=== PATIENT | male | born 1960 | race Caucasian/White ===

== ENCOUNTER → 2017-05-20 10:47 | Outpatient (CLI) | payer MEDICARE, SELFPAY ==
[2017-05-20 13:06] LABS: BNP,B-Type NATRIURETIC PEPTIDE 12.5 pg/mL (0-100)
== END ==
PROVIDERS: Family Provider Internal Medicine; PCP Internal Medicine; Visit Provider Physician Assistant Medical
DX: R06.09 Other forms of dyspnea (principal)
CPT/HCPCS: 36415; 83880

== ENCOUNTER → 2017-06-01 15:08 | Outpatient (CLI) | payer MEDICARE, SELFPAY ==
[2017-06-01 15:57] LABS: Anion Gap 9 (5-15); BUN 18 mg/dL (7-18); BUN/Creat Ratio 15.8 RATIO (10-20); Calcium,Total 9.3 mg/dL (8.5-10.1); Chloride 105 mmol/L (98-107); Creatinine, Serum 1.14 mg/dL (0.70-1.30); EST Glomerular Filtration Rate 70 mL/min (>60); Est Glom Filt Rate - Afr Amer 85 mL/min (>60); Glucose 78 mg/dL (74-106); Sodium Level 142 mmol/L (136-145)
== END ==
PROVIDERS: Family Provider Internal Medicine; PCP Internal Medicine; Visit Provider Physician Assistant Medical
DX: I10 Essential (primary) hypertension (principal)
CPT/HCPCS: 36415; 80048

== ENCOUNTER → 2017-06-15 15:11 | Outpatient (CLI) | payer MEDICARE, SELFPAY ==
--- NOTE | 2017-06-15 15:14 | VDLE_ITS ---
Reason For Study: swelling RIGHT LEFT GSV is normal. GSV is normal. CFV is compressible, spontaneous, phasic, CFV is compressible, spontaneous, phasic, competent and demonstrates normal competent, and demonstrates normal augmentation. augmentation. FV is compressible, spontaneous, phasic, FV is compressible, spontaneous, phasic, competent and demonstrates normal competent and demonstrates normal augmentation. augmentation. POP V is compressible, spontaneous, phasic, POP V is compressible, spontaneous, phasic, competent and demonstrates normal competent and demonstrates normal augmentation. augmentation. T/P Trunk is compressible. T/P Trunk is compressible. PTV is compressible. PTV is compressible. RT PerV is compressible. LT PerV is compressible. Procedure Exam performed in department. The exam was of fair technical quality due to pt body habitus. A preliminary report was called and/or faxed to Dr. Pinto. Interpretation Summary Deep veins of the lower extremities are bilaterally patent and compressible segmentally. There is no evidence of deep vein thrombosis on either side. Valvular competence appears intact within the proximal deep venous systems bilaterally. The greater saphenous veins appear bilaterally patent and compressible segmentally. Ordering Physician: Melissa Pinto Performed By: Juan Manuel Pal RVT
--- NOTE | 2017-06-15 15:15 | EKG12_ITS ---
Test Reason : PRE OP Blood Pressure : / mmHG Vent. Rate : 087 BPM Atrial Rate : 087 BPM P-R Int : 158 ms QRS Dur : 092 ms QT Int : 378 ms P-R-T Axes : 061 039 061 degrees QTc Int : 454 ms Normal sinus rhythm Nonspecific ST abnormality Abnormal ECG Confirmed by SANTIAGO BERTRAND, TABITHA ([id number]), society editor WILMA ENGEL ([id number] on 06/16/2017 1:12:29 PM Referred By: Melissa Pinto Confirmed By:TABITHA HENDERSON MD
== END ==
PROVIDERS: Family Provider Internal Medicine; PCP Internal Medicine; Visit Provider Anesthesiology Pain Medicine
DX: M79.89 Other specified soft tissue disorders (principal); R52 Pain, unspecified
CPT/HCPCS: 93005; 93970

== ENCOUNTER → 2017-07-08 09:47 | Outpatient (CLI) | payer MEDICARE, SELFPAY ==
--- NOTE | 2017-07-08 09:49 | RAD_ITS ---
STUDY: X-RAY - PELVIS AND BILATERAL HIPS REASON FOR EXAM: Male, 56 years old. Bilateral hip pain. TECHNIQUE: Radiological exam, hip, bilateral, with pelvis when performed; minimum of 5 views COMPARISON: None. FINDINGS: There is a non-specific bowel gas pattern. Normal visualized soft tissue structures. Normal bilateral iliac wings, sacroiliac joints and visualized sacrum. Normal bilateral superior and inferior pubic rami. Normal pubic symphysis. Normal bilateral ischial tuberosities. There is mild arthrosis of both hips. RAD/Hips B/L min 2 views w/ Pelvis IMPRESSION: Mild arthrosis of both hips. No other abnormality identified. Electronically Signed: Pavel Hart MD at 10:36 EDT , Service support ,
== END ==
PROVIDERS: Family Provider Internal Medicine; PCP Internal Medicine; Visit Provider Orthopaedic Surgery
DX: M25.551 Pain in right hip (principal); M25.552 Pain in left hip
CPT/HCPCS: 73521

== ENCOUNTER → 2017-10-26 07:55 | Outpatient (CLI) | payer MEDICARE, SELFPAY | PROVIDERS: Family Provider Internal Medicine; PCP Internal Medicine; Visit Provider Internal Medicine Pulmonary Disease | DX: R05 Cough (principal) | CPT/HCPCS: 87070; 87205 ==

== ENCOUNTER → 2018-03-09 09:54 | Outpatient (CLI) | payer MEDICARE, SELFPAY ==
[2017-08-26 09:47] VITALS: BMI 51.3
[2018-03-09 10:56] LABS: Amphetamine Urine VISTA NEGATIVE (<1000 ng/mL); Barbiturate Urine VISTA NEGATIVE (< 200 ng/mL); Benzodiazepine Urine VISTA NEGATIVE (< 200 ng/mL); Cocaine Urine VISTA NEGATIVE (< 300 ng/mL); Ecstacy Urine VISTA POSITIVE (< 500 ng/mL); Methadone Urine VISTA NEGATIVE (< 300 ng/mL); PCP Urine VISTA NEGATIVE (< 25 ng/mL); THC Urine VISTA NEGATIVE (< 50 ng/mL); Vista UDS pH Range 5
== END ==
PROVIDERS: Family Provider Internal Medicine; PCP Internal Medicine; Referring Provider Anesthesiology Pain Medicine; Visit Provider Anesthesiology Pain Medicine
DX: F11.20 Opioid dependence, uncomplicated (principal)
CPT/HCPCS: 80307

== ENCOUNTER → 2018-07-08 | Outpatient (CLI) | payer MEDICARE, SELFPAY ==
[2018-07-08 10:25] VITALS: BMI 49.0
[2018-07-08 13:45] LABS: AST(SGOT) 20 U/L (15-37); Alanine Aminotransfer ALT/SGPT 39 U/L (16-61); Albumin, Serum 3.7 g/dL (3.2-5.0); Alkaline Phosphatase 83 U/L (45-117); Anion Gap 7 (5-15); BUN 18 mg/dL (7-18); BUN/Creat Ratio 13.6 RATIO (10-20); Calcium,Total 8.8 mg/dL (8.5-10.1); Chloride 97 mmol/L (98-107); Creatinine, Serum 1.32 mg/dL (0.70-1.30); EST Glomerular Filtration Rate 59 mL/min (>60); Est Glom Filt Rate - Afr Amer 72 mL/min (>60); Globulin 3.8 g/dL (2.2-4.2); Glucose 99 mg/dL (74-106); Potassium 3.1 mmol/L (3.5-5.1); Protein, Total 7.5 g/dL (6.4-8.2); Sodium Level 141 mmol/L (136-145)
== END | disposition home or self-care (01) ==
PROVIDERS: Family Provider Internal Medicine; PCP Internal Medicine
DX: K52.9 Noninfective gastroenteritis and colitis, unspecified (principal)
CPT/HCPCS: 36415; 80053

== ENCOUNTER 2018-10-21 12:04 | Emergency (ER) | payer MEDICARE, SELFPAY ==
[2018-09-01 08:42] VITALS: BMI 48.6
[2018-10-21 12:05] VITALS: BP 164/74; PULSE 94; RESP 16; TEMP 36.2; O2SAT 95; BMI 46.6
--- NOTE | 2018-10-21 12:25 | ED.DCSUM_ITS ---
- ER Visit Summary Date of Service: 10/21/18 Chief Complaint: Hypokalemia History of Present Illness: The patient is a 57 M sent by his primary doctor for hypokalemia. Physical Examination: Afebrile and vital signs unremarkable. Patient is alert. Sitting comfortably, moving comfortably. Normal speech. Test Results: None performed Emergency Department Course and Treatment: I saw the patient less than 20 minutes after he was triaged. I walked in the room and he was wearing headphones. He took them off and I said I was Dr. Camara. Before I could finish introducing myself, he said you have an order from Dr. Galeana. I said no but I am here to help and will figure it out. He said well I am just leaving then. I told him that I could find out what he needs and then I would be happy to give her a call. He said he is tired of dealing with this system. He is dealt with doctors for years and that one hand does not know what the other hand is doing. I asked him to please stop yelling at me, and he was yelling even more. He said he was going to leave, and he eloped. Treatment Plan: As above Disposition: Elopement Impression: 1. Hypokalemia This note was generated with [employer] dictation software. It may contain incorrect words, spelling, and punctuation that were not noted in review of the chart prior to signing ED Disposition - Plan for ED Patient: Referrals: Gabrielle Galeana, [Primary Care Provider] -
--- NOTE | 2018-10-21 12:30 | ED.RN ---
PT WAS VERY AGGITATED ABOUT BEING SENT TO ER AND WAS NOT UNDERSTANDING THAT A POTASSIUM DRIP WOULD NOT BE IMMEDIATELY INFISED SO HE COULD LEAVE. PT WAS COMPLAINING ABOUT EVERYTHING FROM THE PARKING LOT TO ALL THE QUESTIONS BEING ASKED. HE WAS MAD THAT HE NEEDED TO PUT A GOWN ON. PT BECAME VERY ANGRY AT DR MCNEAL BECAUSE HE DID NOT HAVE A ORDER FROM DR RUIZ FOR THE POTASSIUM DRIP. HE WAS NOT COOPERATIVE AND STATED HE WAS LEAVING. PT GOT DRESSED AND THEN AMBULATED FROM ED.
== END 2018-10-21 12:37 | disposition left against medical advice (07) ==
LOC: ED 12:26
PROVIDERS: Emergency Provider Emergency Medicine; Family Provider Internal Medicine; PCP Internal Medicine
DX: E87.6 Hypokalemia (principal)
CPT/HCPCS: 99281

== ENCOUNTER 2018-10-21 17:59 | Emergency (ER) | payer MEDICARE, SELFPAY ==
[2018-10-21 12:05] VITALS: BMI 46.6
[2018-10-21 18:00] VITALS: BP 126/89; PULSE 99; RESP 17; TEMP 37.2; O2SAT 95; BMI 46.6
--- NOTE | 2018-10-21 18:19 | ED.DCSUM_ITS ---
History of Present Illness Chief Complaint: Abn Labs Informant: Patient Narrative: Patient was seen earlier today however he eloped. He presents again he has a potassium of 2.4 in the outpatient environment. He is on diuretics and he has been taking laxatives for constipation. He denies any fever chills cough or congestion he does admit to diffuse weakness. He denies any palpitations. He is sent here by his PCP. Past Medical History - Allergies and Home Meds Allergies/Adverse Reactions: Allergies No Known Allergies Allergy (Verified 10/21/18 18:00) Primary Care Physician: Gabrielle Galeana DO [Primary Care Provider] - Past Medical History: - - Reviewed and [facility] Surgical History: noncontributory, - - BL knee arthoscopic surgery, back surgery, ankle surgery. Smoking Status: Former smoker - Family History Maternal Family History: Family History (Last Reviewed 09/01/18 @ 09:35 by Chun Gurrola MD) Father CAD (coronary artery disease) CVA (cerebral vascular accident) Hypercholesterolemia Mother Arthritis Breast cancer Osteoporosis Heart disease Sister CAD (coronary artery disease) Family History: Reports: No pertinent history, - - No sarcoidosis Paternal Family History: Family History (Last Reviewed 09/01/18 @ 09:35 by Chun Gurrola MD) Father CAD (coronary artery disease) CVA (cerebral vascular accident) Hypercholesterolemia Mother Arthritis Breast cancer Osteoporosis Heart disease Sister CAD (coronary artery disease) Family History: Reports: No pertinent history, - - No sarcoidosis Review of Systems All systems negative except as indicated General: Reports: - - Generalized weakness. Denies: Fever Eyes: Denies: Visual changes - left Cardiovascular: Denies: Chest pain, Palpitations Respiratory: Denies: Cough Musculoskeletal: Denies: Neck pain Neurological: Denies: Headache Psych: Reports: Anxiety Physical Exam Vital Signs/Narrative: Vital Signs Temp Pulse Resp BP Pulse Ox 10/21/18 18:00 99.0 F 99 17 126/89 H 95 General: Well nourished, Obese Head: Normocephalic Eyes: Perrl ENT: Moist mucous membranes Cardiovascular: Regular rate, Regular rhythm Respiratory: No distress, CTA bilaterally Abdomen: Soft, Nontender Back: Nontender, Normal Inspection Extremities: Nontender, No edema Skin: Normal color Neurological: Alert, Normal Strength, Normal Sensation Psychological: Normal affect Diagnostic/Tx/Re-eval - Medical Decision Making Patient will receive IV potassium, afterwards he will receive a prescription for p.o. potassium. He is encouraged to stop laxatives. He is to talk to his PCP about his diuretics. Disposition discharge stable condition ED Disposition - Plan for ED Patient: Disposition: Psychiatric Hospital or Unit Diagnosis: Hypokalemia Instructions: Hypokalemia Referrals: Gabrielle Galeana DO [Primary Care Provider] - 3-5 Days
[2018-10-21] MEDS: Potassium Chloride 10mEq/100mL 10 MEQ/100 ML IV.SOLN. 100 MEQ IV BOLUS ×3 (18:44→20:56)
[2018-10-21 18:52] VITALS: TEMP 37.2
[2018-10-21 19:51] VITALS: BP 87/64; PULSE 94; RESP 19; O2SAT 96
[2018-10-21 20:03] VITALS: BP 138/80; PULSE 92; RESP 16; O2SAT 97
--- NOTE | 2018-10-21 21:23 | ED.DEP ---
ED Disposition - Plan for ED Patient: Disposition: Psychiatric Hospital or Unit Diagnosis: Hypokalemia Instructions: Hypokalemia Prescriptions: Potassium Chloride 40 meq PO DAILY #8 [email or web address].prt Prescription Printed Referrals: Gabrielle Galeana DO [Primary Care Provider] - 3-5 Days
[2018-10-21 22:03] VITALS: BP 141/81; PULSE 82; RESP 20; O2SAT 96
== END 2018-10-21 22:04 | disposition home or self-care (01) ==
PROVIDERS: Emergency Provider Emergency Medicine; Family Provider Internal Medicine; PCP Internal Medicine
DX: E87.6 Hypokalemia (principal); Z87.891 Personal history of nicotine dependence; E66.9 Obesity, unspecified
CPT/HCPCS: 96365; 96366; 99281; 99285; J7030; A4216

== ENCOUNTER → 2018-10-25 | Outpatient (CLI) | payer MEDICARE, SELFPAY ==
[2018-09-01 08:42] VITALS: BMI 48.6
[2018-10-21 18:00] VITALS: BMI 46.6
--- NOTE | 2018-10-25 18:45 | CT_ITS ---
STUDY: LOW DOSE CT LUNG CANCER SCREENING REASON FOR EXAM: Male, 57 years old. Tobacco abuse RADIATION DOSAGE (If Supplied By Facility): CTDIvol = ( 4.02 ) mGy, DLP = ( 145.97 ) mGycm TECHNIQUE: No contrast was administered. Low dose technique was utilized (average mAS-38 and kVp 120). 1.25 mm axial source images with a slice interval of 1.25-mm were reconstructed in lung windows. 2.5 mm axial source images with a slice interval of 2.5-mm were reconstructed in lung windows. 5.0 mm axial source images with a slice interval of 5.0-mm were reconstructed in soft tissue windows. Nodule measured using lung windows on PACS and/or independent workstation with automated measurement of minimum and maximum diameter. Nodule measurement reported as average diameter rounded to the nearest whole number. Growth is defined as an increase ins size of greater than 1.5 mm. COMPARISON: CT chest May 29, 2015 NODULES: Total lung nodules (excluding granulomas): 0 Emphysema: Mild to moderate. Areas of scarring presentw. Endobronchial lesion: None Aorta: Normal Coronary arteries: Normal Heart: Normal Pulmonary artery: Normal Mediastinal nodes: Normal Other chest and abdominal findings: None significant CT/Low Dose CT Lung Screening IMPRESSION: No significant pulmonary nodules or masses. LRADS 1 Mild to moderate emphysema. IMPORTANT NOTES FOR USE: ACR Lung-RADS Version 1.0 Assessment Categories Release Date: June 05, 2013 Category: Coded 0-4 bases on nodule(s) with highest degree of suspicion. Negative screen is defined as categories 1 and 2; a positive screen is defined as categories 3 and 4. Category 3 and 4A nodules that are unchanged on interval CT should be coded as category 2, and individuals returned to screening in 12 months. Category 4X: Category 3 or 4 nodules with additional imaging findings that increase the suspicion of lung cancer, such as spiculation, GGN that doubles in size in 1 year, enlarged lymph notes, etc. Category Modifiers: S (significant finding unrelated to lung cancer) and C (prior history of treated lung cancer) may be added to the 0-4 Lung-RADS Electronically Signed: Tha Narvaez, at 21:36 EDT Tel , Service support ,
== END | disposition home or self-care (01) ==
LOC: CT 18:46
PROVIDERS: Family Provider Internal Medicine; PCP Internal Medicine; Referring Provider Internal Medicine; Visit Provider Internal Medicine
DX: Z87.891 Personal history of nicotine dependence (principal); Z72.0 Tobacco use; Z12.2 Encounter for screening for malignant neoplasm of respiratory organs
CPT/HCPCS: G0297

== ENCOUNTER 2018-10-26 18:12 | Emergency (ER) | payer MEDICARE, SELFPAY ==
[2018-10-26] VITALS (7 sets, daily range): BP systolic 114–142; BP diastolic 73–100; PULSE 78–111; RESP 15–18; TEMP 36.6; O2SAT 94–97; BMI 46.6
--- NOTE | 2018-10-26 18:21 | EKG12_ITS ---
Test Reason : LOW POTASSIUM Blood Pressure : / mmHG Vent. Rate : 104 BPM Atrial Rate : 104 BPM P-R Int : 160 ms QRS Dur : 100 ms QT Int : 376 ms P-R-T Axes : 044 055 031 degrees QTc Int : [address] & T wave abnormality, consider inferior ischemia Abnormal ECG Confirmed by NEERAJ BERTRAND, ROSE ([id number]), food editor AMMY BRIGHT ([id number]) on 10/28/2018 1:30:56 PM Referred By: Gabrielle Galeana Confirmed By:JALEN PICKARD MD
--- NOTE | 2018-10-26 18:37 | ED.DCSUM_ITS ---
- ER Visit Summary Date of Service: 10/26/18 Chief Complaint: Low potassium History of Present Illness: The patient is a [address] Galeana. He reports that he has had problems with hypokalemia all my life. States that this episode began again approximately 1 week ago. States that he was here 5 d ays ago and got 3 bags of potassium and 10 pills. However, he reports the pills and never worked in the past. Review of systems: General: No fever, chills, cold sweats. Cardiovascular: No chest pain, palpitations. Respiratory: No cough, shortness of breath, dyspnea on exertion. Gastrointestinal: No abdominal pain, nausea, vomiting, diarrhea, melena, or hematochezia. Genitourinary: No dysuria, frequency, hematuria. Skin: No rash. Neuro: No headache, numbness, weakness. Physical Examination: Vitals: Stable. Afebrile. General: Well-nourished and well-developed. Head: Normocephalic atraumatic. Neck: Supple, no lymphadenopathy. No JVD. Nontender. Cardiovascular: Regular rate and rhythm. No murmurs. Respiratory: No respiratory distress. Clear to auscultation bilaterally. Abdominal: Soft, nontender, nondistended, normal bowel sounds. No guarding, rebound, or peritoneal signs. Back: Nontender. Extremities: Nontender, no edema. Skin: Normal color, no rash. Neurologic: Alert and oriented ?3. Cranial nerves II through XII are intact. Normal strength and sensation. Psych: Normal affect. Test Results: EKG is sinus tach at [address] changes. He does have inferolateral ST depression. This is a change from June 15, 2017. CBC shows an H&H 12.6 and 37.0. Chem-7 shows a potassium of 2.1, chloride 96, CO2 36, glucose 138, creatinine 1.56. Creatinine has ranged from 1.32-1.56 and 2019. Magnesium was 1.1. Emergency Department Course and Treatment: Patient reports that IV potassium is the only thing that works for him. He was given 120 mEq of potassium over the course of 12 hours. I discussed in the fact that his magnesium was low. He was given 800 mg of magnesium oxide p.o. He does report that he takes magnesium at home. He is unsure of the dose of this. Treatment Plan: Patient is refusing to be admitted to the hospital. 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 He will be discharged potassium and magnesium. Instructed him Dr. Galeana in 1 to 2 days for another exam. Return to the emergency department for any worsening symptoms. Disposition: To home in improved and stable condition. Impression: 1. Severe hypokalemia. This note was generated with [employer] dictation software. It may contain incorrect words, spelling, and punctuation that were not noted in review of the chart prior to signing ED Disposition - Plan for ED Patient: Instructions: Hypokalemia Prescriptions: Magnesium Oxide 800 mg PO BID #10 tablet Potassium Chl Soln 20 meq PO BID #10 dose Referrals: Gabrielle Galeana, [Primary Care Provider] - 1-2 Days if not improving
[2018-10-26] MEDS: Potassium Chloride 10mEq/100mL 10 MEQ/100 ML IV.SOLN. 100 MEQ IV BOLUS ×5 (18:55→23:05)
[2018-10-26 19:32] LABS: Absolute Lymphocyte Count 1.43 X10^3/uL (0.83-4.51); Absolute Neutrophil Count 4.4 X10^3/uL (2.0-7.7); Basophil# 0.02 X10^3/uL; Basophil% 0.3 % (0-1); Eosinophil# 0.09 X10^3/uL; Eosinophils% 1.4 % (0-5); Hemoglobin 12.6 g/dL (13.0-16.5); Lymphocyte # 1.43 X10^3/ul (4.0); Lymphocyte % 21.9 % (19-41); Mean Corp Hgb Conc 34.1 g/dL (32-36); Mean Corpuscular Hgb 29.7 pg (27.0-32.0); Mean Corpuscular Volume 87.3 fL (80-94); Mean Platelet Vol. 11.4 fl (6.2-12.0); Monocyte# 0.58 X10^3/uL; Monocyte% 8.9 % (0-10); NRBC Flagged by Analyzer 0 % (0-5); Neutrophil # 4.41 X10^3/uL (2.7-7.7); Neutrophil % 67.3 % (47-70); Platelet Count 185 K/mm3 (150-450); RBC Distribution Width CV 13.7 % (11.6-14.6); RBC Distribution Width SD 42.7 fl (35.1-43.9); Red Blood Count 4.24 M/mm3 (4.6-6.2); White Blood Count 6.5 K/mm3 (4.4-11.0)
--- NOTE | 2018-10-26 19:45 | ED.RN ---
took critical potassium value of 2.1. and rn aware.
[2018-10-26 19:47] LABS: Anion Gap 5 (5-15); BUN 14 mg/dL (7-18); Calcium,Total 8.5 mg/dL (8.5-10.1); Chloride 96 mmol/L (98-107); Creatinine, Serum 1.56 mg/dL (0.70-1.30); EST Glomerular Filtration Rate 49 mL/min (>60); Est Glom Filt Rate - Afr Amer 59 mL/min (>60); Estimated Creatinine Clearance 53.29 ml/min; Glucose 138 mg/dL (74-106); Magnesium 1.1 mg/dL (1.6-2.6); Potassium 2.1 mmol/L (3.5-5.1); Sodium Level 137 mmol/L (136-145)
[2018-10-26] MEDS: Magnesium Oxide 400 MG Tablet 800 MG PO (20:35)
--- NOTE | 2018-10-26 20:47 | NURSING ---
na in pharmacy said ok to run 40 meq kcl in 1000cc bag in 1 hr
[2018-10-26] MEDS: Potassium Chloride 40 MEQ in 0.9% Normal Saline 1,000 ML 1000 MEQ IV (22:02)
[2018-10-27] MEDS: Potassium Chloride 10mEq/100mL 10 MEQ/100 ML IV.SOLN. 100 MEQ IV BOLUS ×3 (00:12→02:31)
[2018-10-27 01:05] VITALS: BP 163/91; RESP 21; TEMP 36.9; O2SAT 97
[2018-10-27 03:03] VITALS: BP 135/62; PULSE 94; RESP 20; O2SAT 94
[2018-10-27 03:38] VITALS: BP 135/62; PULSE 93; RESP 17; O2SAT 95
== END 2018-10-27 03:44 | disposition home or self-care (01) ==
PROVIDERS: Emergency Provider Emergency Medicine; Family Provider Internal Medicine; PCP Internal Medicine
DX: E87.6 Hypokalemia (principal); J44.9 Chronic obstructive pulmonary disease, unspecified; I10 Essential (primary) hypertension; Z79.51 Long term (current) use of inhaled steroids; Z79.899 Other long term (current) drug therapy
CPT/HCPCS: 80048; 83735; 85025; 93005; 96365; 96366; 99284; J7030; J7050; A4216

== ENCOUNTER 2018-10-28 18:36 | Observation (INO) | payer MEDICARE, SELFPAY ==
[2018-10-26 18:13] VITALS: BMI 46.6
[2018-10-28 18:37] VITALS: BP 132/74; PULSE 88; RESP 16; TEMP 36.7; O2SAT 95; BMI 49.3
[2018-10-28 19:00] LABS: Absolute Lymphocyte Count 1.59 X10^3/uL (0.83-4.51); Absolute Neutrophil Count 2.7 X10^3/uL (2.0-7.7); Basophil# 0.01 X10^3/uL; Basophil% 0.2 % (0-1); Eosinophil# 0.15 X10^3/uL; Eosinophils% 3.1 % (0-5); Hemoglobin 12.6 g/dL (13.0-16.5); Lymphocyte # 1.59 X10^3/ul (4.0); Lymphocyte % 32.6 % (19-41); Mean Corp Hgb Conc 34.1 g/dL (32-36); Mean Corpuscular Hgb 30.1 pg (27.0-32.0); Mean Corpuscular Volume 88.5 fL (80-94); Mean Platelet Vol. 10.5 fl (6.2-12.0); Monocyte# 0.42 X10^3/uL; Monocyte% 8.6 % (0-10); NRBC Flagged by Analyzer 0 % (0-5); Neutrophil # 2.68 X10^3/uL (2.7-7.7); Neutrophil % 55.1 % (47-70); Platelet Count 169 K/mm3 (150-450); RBC Distribution Width CV 13.4 % (11.6-14.6); RBC Distribution Width SD 43.3 fl (35.1-43.9); Red Blood Count 4.18 M/mm3 (4.6-6.2); White Blood Count 4.9 K/mm3 (4.4-11.0)
[2018-10-28] MEDS: Potassium Chloride 10mEq/100mL 10 MEQ/100 ML IV.SOLN. 100 MEQ IV BOLUS ×4 (19:18→22:45)
[2018-10-28 20:05] LABS: Anion Gap 5 (5-15); BUN 11 mg/dL (7-18); BUN/Creat Ratio 10.3 RATIO (10-20); Calcium,Total 8.3 mg/dL (8.5-10.1); Chloride 98 mmol/L (98-107); Creatinine, Serum 1.07 mg/dL (0.70-1.30); EST Glomerular Filtration Rate 75 mL/min (>60); Est Glom Filt Rate - Afr Amer 91 mL/min (>60); Glucose 112 mg/dL (74-106); Potassium 2.6 mmol/L (3.5-5.1); Sodium Level 140 mmol/L (136-145)
--- NOTE | 2018-10-28 20:08 | HP.PCM_ITS ---
Problem List (1) Hypokalemia Status: Acute History of Present Illness Date of Admission: 10/28/18 Chief Complaint: hypokalemia on outpatient lab The patient is a 57 year old M with with a significant history of COPD; hypertension; fibromyalgia; morbid obesity; partial sleep apnea who presented to emergency department because of hypokalemia of 2.6 on outpatient labs. This is patient's third visit to the ED because of hypokalemia. Patient complains of muscle cramps At the emergency department patient received p.o. and IV potassium supplementation. EKG is showed sinus rhythm with QTC of 474 Past Medical History Past Medical History (Chronic Problems): Chronic Problems (Last Reviewed 10/28/18 @ 21:45 by Tani Giordano MD) Dizziness (Chronic) Secondary pulmonary arterial hypertension (Chronic) Essential (primary) hypertension (Chronic) Palpitations (Chronic) Hyperlipidemia (Chronic) Medical History: Medical History (Last Reviewed 10/28/18 @ 22:49 by Tani Giordano MD) Secondary pulmonary arterial hypertension (Chronic) I27.21 Essential (primary) hypertension (Chronic) I10 Hyperlipidemia (Chronic) E78.5 Anxiety F41.9 Bipolar disorder F31.9 COPD (chronic obstructive pulmonary disease) J44.9 Chronic fatigue and malaise R53.82, R53.81 Fibromyalgia GERD (gastroesophageal reflux disease) K21.9 Inflammatory polyarthritis M06.4 Morbid obesity with BMI of 45.0-49.9, adult E66.01, Z68.42 Obstructive sleep apnea G47.33 Sarcoidosis D86.9 Tobacco abuse Z72.0 Chest discomfort R07.89 Dyspnea on exertion R06.09 Allergies No Known Allergies Allergy (Verified 10/28/18 18:40) Home Medications: Ambulatory Orders Medication Instructions Recorded Budesonide/Formoterol 160/4.5 2 puff INHALATION BID 02/27/16 [Symbicort 160/4.5 Mcg Inhaler (SP)] Tiotropium [place] [Spiriva 18 MCG] 1 puff INHALATION DAILY 11/27/16 fluticasone propionate 50 1 puff INTRANASAL BID 30 Days #16 05/20/17 mcg/actuation nasal spray,suspension bupropion HCl 75 mg tablet 75 mg PO BID 30 Days #60 tab 06/07/18 hydrocodone 5 mg-acetaminophen 325 1 tab PO DAILY PRN PRN 28 Days #56 06/07/18 mg tablet tab escitalopram 5 mg tablet 2.5 mg PO BID 30 Days #60 tab 07/08/18 tizanidine 4 mg tablet 4 mg PO QHS 30 Days #60 tab 07/08/18 torsemide 20 mg tablet 40 mg PO DAILY 30 Days #60 tab 08/09/18 amlodipine 5 mg tablet 5 mg PO BID #60 tab 09/01/18 carvedilol 6.25 mg tablet 6.25 mg PO BID #120 tab 09/01/18 Linaclotide [Linzess] 72 mcg PO DAILY 10/21/18 Magnesium Oxide 800 mg PO BID #10 tab 10/26/18 Potassium Chl Soln 20 meq PO BID #10 dose 10/26/18 Surgical History: Surgical History (Last Reviewed 10/28/18 @ 22:49 by Tani Giordano MD) H/O: knee surgery Z98.890 02/28/2014 History of gastric bypass Onset Date: 2017 Z98.84 History of left heart catheterization Onset Date: 05/22/14 Z98.890 History of lumbar surgery Z98.890 History of right heart catheterization Onset Date: 11/30/16 Z98.890 History of thoracentesis Z98.890 05/2009 ankle surgery Surgical History: noncontributory, - - BL knee arthoscopic surgery, back surgery, ankle surgery. Psychiatric History: No pertinent psych hx Lives: Spouse/ Significant Other Smoking Status: Former smoker - Patient used to chew cigars. - *Family History Maternal Family History: Family History (Last Reviewed 10/28/18 @ 22:49 by Tani Giordano MD) Father CAD (coronary artery disease) CVA (cerebral vascular accident) Hypercholesterolemia Mother Arthritis Breast cancer Osteoporosis Heart disease Sister CAD (coronary artery disease) History Items: No pertinent history, - - No sarcoidosis Paternal Family History: Family History (Last Reviewed 10/28/18 @ 22:49 by Tani Giordano MD) Father CAD (coronary artery disease) CVA (cerebral vascular accident) Hypercholesterolemia Mother Arthritis Breast cancer Osteoporosis Heart disease Sister CAD (coronary artery disease) History Items: - - No sarcoidosis Review of Systems Constitutional: Denies: Chills, Fever, Weight Change HEENT: Denies: Head Aches, Sinus Congestion, Sinus Drainage Cardiovascular: Denies: Chest Pain, Palpitations Respiratory: Denies: Cough, Shortness of breath at rest, Sputum production Gastrointestinal: Denies: Abdominal Pain, Nausea, Vomiting Genitourinary: Denies: Dysuria Musculoskeletal: Reports: Muscle pain. Denies: Joint Pain, Joint Tenderness Skin: Denies: Rash, Wounds Neurological: Denies: Numbness, Tingling, Focal weakness Psychiatric: Denies: Anxiety, Depression, Homicidal Ideations, Suicidal Ideations Hematologic/ Lymphatic: Denies: Easy Bruising, Easy Bleeding VTE Information - Inpt Only VTE Present on Admission: No VTE Mechan Device Prophylaxis: None VTE Pharm Prophylaxis ordered?: Yes Patient Problems: Active and Suspected Problems (Last Reviewed 10/28/18 @ 21:45 by Tani Giordano MD) Hypokalemia (Acute) Hypokalemia (Acute) - Physical Exam General: Alert, Oriented x3, Cooperative HEENT: Atraumatic, PERRLA, EOMI, Normocephalic Neck: Supple, No JVD, Negative Carotid Bruits Lungs: Clear to auscultation, Normal air movement, No rhonchi, No wheeze, No rales, Short of Breath Cardiovascular: Regular rate, No murmurs Abdomen: Bowel Sounds Present, Soft, Non Tender Extremities: No edema, Capillary Refill Less than 3 Seconds Skin: No rashes, No breakdown Musculoskeletal: No Tenderness to Palpation of Joints or Extremities Neurological: Cranial nerves II-XII grossly intact Psych/Mental Status: Normal Affect, Appropriate Vital Signs Temp Pulse Resp BP Pulse Ox 98.0 F 88 16 132/74 H 95 10/28/18 18:37 10/28/18 18:37 10/28/18 18:37 10/28/18 18:37 10/28/18 18:37 Oxygen Delivery Method Room Air Weight: 156 kg Body Mass Index (BMI) 49.3 Laboratory Tests Past 24 Hrs 10/28/18 10/28/18 18:50 18:50 WBC 4.9 RBC 4.18 L Hgb 12.6 L Hct 37.0 L MCV 88.5 MCH 30.1 MCHC 34.1 RDW Std Deviation 43.3 RDW Coeff of Jordin 13.4 Plt Count 169 MPV 10.5 Immature Gran % (Auto) 0.400 Neut % (Auto) 55.1 Lymph % (Auto) 32.6 [place] % (Auto) 8.6 Eos % (Auto) 3.1 Baso % (Auto) 0.2 Absolute Neuts (auto) 2.7 Absolute Lymphs (auto) 1.59 Nucleated RBC % 0 Sodium 140 Potassium 2.6 L* Chloride 98 Carbon Dioxide 37.0 H Anion Gap 5 BUN 11 Creatinine 1.07 Estim Creat Clear Calc 77.70 Est GFR (MDRD) Af Amer 91 Est GFR (MDRD) Non-Af 75 BUN/Creatinine Ratio 10.3 Glucose 112 H Calcium 8.3 L Assessment/Plan All Active Problems (Last Reviewed 10/28/18 @ 21:45 by Tani Giordano MD) Hypokalemia (Acute) Hypokalemia (Acute) Acute exacerbation of chronic obstructive pulmonary disease (Resolved) Acute respiratory failure (Resolved) The patient is a 57 year old M with with a significant history of COPD; hypertension; fibromyalgia; morbid obesity; partial sleep apnea who presented to emergency department because of hypokalemia of 2.6 on outpatient labs. Hypokalemia Etiology could be from diuretic use and from inhaled beta agonist or other. On presentation his potassium was 2.6. And in the past week his potassium level has been consistently low. Received p.o. potassium and IV potassium in the emergency department. Change home potassium supplementation to 60 mEq po twice daily. Patient wants Dr. Cornelius, shipboard intelligence analyst to be involved in his care. Patient to establish care outpatient with Dr. Cornelius,. Consider discussing case with Dr. Cornelius Trend BMP. Check magnesium level. Check urine potassium. Hypomagnesemia Home magnesium level continued Chronic systolic heart failure Stable Torsemide continued Carvedilol continued Hypertension On presentation his blood pressure was not within goal Amlodipine and carvedilol continued Depression/anxiety: Lexapro continued. Bupropion continued COPD Stable On home Symbicort. Chronic back pain [place] and tizanidine continued Obstructive sleep apnea Bipap continued IBS Linzess continued DVT Prophylaxis Lovenox SQ ordered. Code Visit OBSV E&M: 29798 Initial observation care L2
--- NOTE | 2018-10-28 20:24 | ED.VIS.GEN ---
History of Present Illness Chief Complaint: Abn Labs Narrative: Patient presenting due to hypokalemia. Patient has had recent history of having this twice over the course the last month that required potassium replacement in the emergency department. He actually has a pending consult coming with nephrology, but had lab tests drawn again today and was noted to be profoundly hypokalemic again. Patient is on diuretics. He is on p.o. replacement at home. He denies any other new symptoms, palpitations or chest pain. Past Medical History - Allergies and Home Meds Allergies/Adverse Reactions: Allergies No Known Allergies Allergy (Verified 10/28/18 18:40) Primary Care Physician: Gabrielle Galeana DO [Primary Care Provider] - Past Medical History: - - CHF Surgical History: noncontributory, - - BL knee arthoscopic surgery, back surgery, ankle surgery. Smoking Status: Former smoker - Family History Maternal Family History: Family History (Last Reviewed 09/01/18 @ 09:35 by Chun Gurrola MD) Father CAD (coronary artery disease) CVA (cerebral vascular accident) Hypercholesterolemia Mother Arthritis Breast cancer Osteoporosis Heart disease Sister CAD (coronary artery disease) Family History: Reports: No pertinent history, - - No sarcoidosis Paternal Family History: Family History (Last Reviewed 09/01/18 @ 09:35 by Chun Gurrola MD) Father CAD (coronary artery disease) CVA (cerebral vascular accident) Hypercholesterolemia Mother Arthritis Breast cancer Osteoporosis Heart disease Sister CAD (coronary artery disease) Family History: Reports: No pertinent history, - - No sarcoidosis Review of Systems All systems negative except as indicated Cardiovascular: Denies: Chest pain, Palpitations Physical Exam Vital Signs/Narrative: Vital Signs Temp Pulse Resp BP Pulse Ox 10/28/18 18:37 98.0 F 88 16 132/74 H 95 Inital Vital Signs reviewed: Yes General: Well nourished, Well developed, Obese, No Acute Distress Head: Normocephalic, Atraumatic Eyes: Perrl, EOMI ENT: Moist mucous membranes, No rhinorrhea Neck: Supple, Nontender Cardiovascular: Regular rate, Regular rhythm, Murmur - 2 out of 6 systolic Respiratory: No distress, CTA bilaterally, Chest nontender Abdomen: Soft, Nontender, Nondistended, Normal bowel sounds Back: Nontender, Normal Inspection Extremities: Nontender Skin: Normal color, No rash Neurological: Alert, Oriented x3, Cranial nerves II-XII grossly intact, Normal Strength, Normal Sensation Psychological: Normal affect, Normal Mood Diagnostic/Tx/Re-eval - Medical Decision Making Patient presented due to hypokalemia. IV was established this was confirmed through laboratory studies. Patient was given both p.o. and IV potassium replacement. Given the fact that this is his third visit for a similar presentation patient will be admitted for nephrology work-up and consultation. ED Disposition - Plan for ED Patient: Disposition: Acute Care [facility] Diagnosis: Hypokalemia
--- NOTE | 2018-10-28 20:31 | EKG12_ITS ---
Test Reason : DYSRHYTHMIA Blood Pressure : / mmHG Vent. Rate : 076 BPM Atrial Rate : 076 BPM P-R Int : 168 ms QRS Dur : 100 ms QT Int : 422 ms P-R-T Axes : 063 043 057 degrees QTc Int : 474 ms Normal sinus rhythm Nonspecific ST abnormality Abnormal ECG Confirmed by ROLF BERTRAND, JEFF ([id number]), scientific publications editor AMMY BRIGHT ([id number]) on 10/31/2018 8:52:46 AM Referred By: Gabrielle Galeana Confirmed By:JEFF BANSAL MD
[2018-10-28 20:53] VITALS: PULSE 84; RESP 16; TEMP 36.7; O2SAT 94
[2018-10-28 21:28] VITALS: BP 155/81; PULSE 89; RESP 18; TEMP 37.2; O2SAT 96; BMI 51.5
[2018-10-28 21:35] VITALS: BMI 51.5
[2018-10-28 21:43] VITALS: PULSE 77
[2018-10-28 22:08] VITALS: O2SAT 92
[2018-10-28 22:30] LABS: Magnesium 1.5 mg/dL (1.6-2.6)
--- NOTE | 2018-10-28 22:42 | CPS ---
Pts. home BiPAP unit setup and tested at bedside. Settings are 23/12 with no oxygen bled in. Pt. requested that no water be filled into machine. Told pt. if he has any problems throughout night with machine to tell RN and RN will contact OPHTHALMIC TECHNICIAN.
[2018-10-28] MEDS: Fluticasone 0.05% 1 SPRAY NASAL.SRY NASAL (23:27)
[2018-10-28] MEDS: tiZANidine HCl 2 MG Tablet 4 MG PO (23:30)
[2018-10-29] VITALS (9 sets, daily range): BP systolic 104–118; BP diastolic 52–68; PULSE 69–80; RESP 16; TEMP 36.8–36.9; O2SAT 92–95
[2018-10-29 06:31] LABS: Absolute Lymphocyte Count 1.53 X10^3/uL (0.83-4.51); Absolute Neutrophil Count 1.7 X10^3/uL (2.0-7.7); Basophil# 0.02 X10^3/uL; Basophil% 0.5 % (0-1); Eosinophil# 0.16 X10^3/uL; Eosinophils% 4.2 % (0-5); Hematocrit 34.2 % (40-54); Hemoglobin 11.5 g/dL (13.0-16.5); Lymphocyte # 1.53 X10^3/ul (4.0); Lymphocyte % 40.6 % (19-41); Mean Corp Hgb Conc 33.6 g/dL (32-36); Mean Corpuscular Hgb 30.3 pg (27.0-32.0); Mean Corpuscular Volume 90.2 fL (80-94); Monocyte# 0.36 X10^3/uL; Monocyte% 9.5 % (0-10); NRBC Flagged by Analyzer 0 % (0-5); Neutrophil # 1.69 X10^3/uL (2.7-7.7); Neutrophil % 44.9 % (47-70); Platelet Count 140 K/mm3 (150-450); RBC Distribution Width CV 13.6 % (11.6-14.6); RBC Distribution Width SD 44.8 fl (35.1-43.9); Red Blood Count 3.79 M/mm3 (4.6-6.2); White Blood Count 3.8 K/mm3 (4.4-11.0)
[2018-10-29 06:53] LABS: Anion Gap 9 (5-15); BUN 12 mg/dL (7-18); BUN/Creat Ratio 12.8 RATIO (10-20); Calcium,Total 8.4 mg/dL (8.5-10.1); Chloride 102 mmol/L (98-107); Creatinine, Serum 0.94 mg/dL (0.70-1.30); EST Glomerular Filtration Rate 88 mL/min (>60); Est Glom Filt Rate - Afr Amer 106 mL/min (>60); Estimated Creatinine Clearance 82.87 ml/min; Glucose 92 mg/dL (74-106); Potassium 2.8 mmol/L (3.5-5.1); Sodium Level 147 mmol/L (136-145)
[2018-10-29] MEDS: Magnesium Oxide 400 MG Tablet 800 MG PO (08:05)
[2018-10-29] MEDS: Carvedilol 6.25 MG Tablet PO (08:39)
[2018-10-29] MEDS: Furosemide 80 MG Tablet PO (08:40)
[2018-10-29] MEDS: buPROPion 75 MG Tablet PO (08:40)
[2018-10-29] MEDS: amLODIPine 5 MG Tablet PO (08:40)
[2018-10-29] MEDS: Fluticasone 0.05% 1 SPRAY NASAL.SRY NASAL (08:41)
[2018-10-29] MEDS: Escitalopram Oxalate 10 MG Tablet 2.5 MG PO (08:46)
--- NOTE | 2018-10-29 11:09 | NURSING ---
MD Galeana called in regards to patient at 1022 this morning. Discussed patients condition and past medical history for further discussion with MD Potter.
--- NOTE | 2018-10-29 12:42 | PN_ITS ---
Patient Problems: Active and Suspected Problems (Last Reviewed 10/28/18 @ 22:49 by Tani Giordano MD) Hypokalemia (Acute) Hypokalemia (Acute) Subjective: Patient seen and is in [place] if he does get IV potassium. Talked about swelling and pain in his arms and legs is been going on for years and states that his potassium is never been checked in 9 years while being on diuretics. States that he has been having chest pain with exertion but has been evaluated extensively through cardiac and pulmonology and found to have no acute issues of by either the specialist, according to the patient. Complains of abdominal pain on his right side of the abdomen that his right side of his abdomen is larger than his left side. Vitals/I&O's: Vital Signs Temp Pulse Resp BP Pulse Ox 36.8 C 79 16 104/52 L 95 10/29/18 08:37 10/29/18 11:00 10/29/18 08:37 10/29/18 08:37 10/29/18 08:37 Oxygen Delivery Method Room Air Weight: 153.7 kg Body Mass Index (BMI) 51.5 Intake and Output for Last 24 Hours 10/27/18 10/28/18 10/29/18 23:59 23:59 23:59 Intake Total 640 / 640 604 / 604 Output Total 200 / 200 320 / 320 Balance 440 / 440 284 / 284 General: Alert, No apparent distress HEENT: Atraumatic, Normocephalic Oral: Moist Mucosa, No Gingival or Mucosal Lesions/ Ulcerations Neck: No Nodes, Thyroid Normal Size and Texture Lungs: Clear to auscultation, Normal air movement Cardiovascular: Regular rate, Regular Rhythm, Normal S1, Normal S2 Abdomen: Bowel Sounds Present, Soft, Non Tender, Non-Distended, Obese, Tender - RUQ Extremities: No edema, No Calf Tenderness Skin: No rashes, No breakdown Psych/Mental Status: Normal Affect, Appropriate Laboratory Results 10/28/18 18:50: WBC 4.9, RBC 4.18 L, Hgb 12.6 L, Hct 37.0 L, MCV 88.5, MCH 30.1, MCHC 34.1, RDW Std Deviation 43.3, RDW Coeff of Jordin 13.4, Plt Count 169, MPV 10.5, Immature Gran % (Auto) 0.400, Neut % (Auto) 55.1, Lymph % (Auto) 32.6, Love % (Auto) 8.6, Eos % (Auto) 3.1, Baso % (Auto) 0.2, Absolute Neuts (auto) 2.7, Absolute Lymphs (auto) 1.59, Nucleated RBC % 0 10/28/18 18:50: Sodium 140, Potassium 2.6 L*, Chloride 98, Carbon Dioxide 37.0 H , Anion Gap 5, BUN 11, Creatinine 1.07, Estim Creat Clear Calc 77.70, Est GFR (MDRD) Af Amer 91, Est GFR (MDRD) Non-Af 75, BUN/Creatinine Ratio 10.3, Glucose 112 H, Calcium 8.3 L 10/28/18 18:50: Magnesium 1.5 L 10/28/18 23:33: Urine Potassium 25.0 10/29/18 05:55: Sodium 147 H, Potassium 2.8 L, Chloride 102, Carbon Dioxide 36.0 H, Anion Gap 9, BUN 12, Creatinine 0.94, Estim Creat Clear Calc 82.87, Est GFR (MDRD) Af Amer 106, Est GFR (MDRD) Non-Af 88, BUN/Creatinine Ratio 12.8, Glucose 92, Calcium 8.4 L 10/29/18 05:55: WBC 3.8 L, RBC 3.79 L, Hgb 11.5 L, Hct 34.2 L, MCV 90.2, MCH 30.3, MCHC 33.6, RDW Std Deviation 44.8 H, RDW Coeff of Jordin 13.6, Plt Count 140 L, MPV 11.0, Immature Gran % (Auto) 0.300, Neut % (Auto) 44.9 L, Lymph % (Auto) 40.6, Love % (Auto) 9.5, Eos % (Auto) 4.2, Baso % (Auto) 0.5, Absolute Neuts (auto) 1.7 L, Absolute Lymphs (auto) 1.53, Nucleated RBC % 0 10/29/18 05:55: Magnesium 2.0 Current Medications Acetaminophen (Tylenol) 650 mg PO Q6H PRN PRN PRN Reason: Mild pain 1-3/Temp > 100.7 F Hydrocodone Bitart/Acetaminophen ([place] 5mg-325mg) 1 tablet PO DAILY PRN PRN PRN Reason: PAIN Albuterol/Ipratropium (Duoneb) 3 ml INHALATION Q6HWA.RT [facility] Last Admin: 10/29/18 06:43 Dose: Not Given Documented by: Amlodipine Besylate (Norvasc) 5 mg PO BID [facility] Last Admin: 10/29/18 08:40 Dose: 5 mg Documented by: Budesonide (Pulmicort Aerosol) 0.5 mg INHALATION BID.RT [facility] Last Admin: 10/29/18 06:43 Dose: Not Given Documented by: Bupropion HCl (Wellbutrin Tablets) 75 mg PO BID [facility] Last Admin: 10/29/18 08:40 Dose: 75 mg Documented by: Carvedilol (Coreg) 6.25 mg PO BID [facility] Last Admin: 10/29/18 08:39 Dose: 6.25 mg Documented by: Dextrose (D50w Syringe) 0 gm IV X1 PRN; Protocol PRN Reason: Hypoglycemia Enoxaparin Sodium (Lovenox) 40 mg SC DAILY@1000 [facility] Last Admin: 10/29/18 08:42 Dose: Not Given Documented by: Escitalopram Oxalate (Lexapro) 2.5 mg PO BID [facility] Last Admin: 10/29/18 08:46 Dose: 2.5 mg Documented by: Fluticasone Propionate (Flonase Nasal [place]) 1 spray NASAL BID [facility] Last Admin: 10/29/18 08:41 Dose: 1 spray Documented by: Furosemide (Lasix) 80 mg PO DAILY [facility] Last Admin: 10/29/18 08:40 Dose: 80 mg Documented by: Glucagon () 1 mg IM .X1 PRN PRN Reason: Hypoglycemia Sodium Chloride () 250 mls @ 15 mls/hr IV .[id number] PRN PRN Reason: SALINE FLUSH Magnesium Oxide (Mag-Ox 400) 800 mg PO BIDCM [facility] Last Admin: 10/29/18 08:05 Dose: 800 mg Documented by: Melatonin (Melatonin) 3 mg PO QHS PRN PRN PRN Reason: INSOMNIA Nutritional Formula (Lactose Free) (Ensure Enlive) 120 ml PO 4X/DAY [facility] Last Admin: 10/29/18 08:40 Dose: Not Given Documented by: [facility]assium [facility] Last Admin: 10/29/18 08:05 Dose: 60 meq Documented by: Sodium Chloride () 10 - 40 ml IV UD PRN PRN Reason: SALINE FLUSH Tizanidine HCl (Zanaflex) 4 mg PO QHS [facility] Last Admin: 10/28/18 23:30 Dose: 4 mg Documented by: Medical Necessity - Tobacco Use Smoking Status: Former smoker - Patient used to chew cigars. Assessment/Plan All Active Problems (Last Reviewed 10/28/18 @ 22:49 by Tani Giordano MD) Hypokalemia (Acute) Hypokalemia (Acute) Acute exacerbation of chronic obstructive pulmonary disease (Resolved) Acute respiratory failure (Resolved) 1. Hypokalemia * Has been low back in June * had been normal prior to that * suspect severe total body depletion given the torsemide and intermittent diarrhea * recheck and replace if still low * Pt to follow up with Dr. Cornelius 11/01. No urgency for inpt evaluation at this time. 2. hypomagnesemia * complicated hypokalemia * improved with replacement 3. RUQ abdominal pain * chronic * check LFTs * may need US, but can be performed as outpt. 4. Chest pain * exertional. * states that he had a LHC in June that was negative (not in our system) * RHC on 11/30/16 showed moderate pulmonary HTN * EF from echo 04/20/17 = 54% Tried to inform patient about many misconceptions the patient has: such as the potassium making him feel warm and causing swelling; that his oxygenation is not directly related to his potassium. He states that his potassium has not been checked in 9 years despite being on diuretics. It may have not been an issue until as he clearly has had his potassium check numerous times though [facility] labs. Greater than 40 minutes of which greater than 50% of the time was counseling about his potassium and explaining symptoms and correcting his misconceptions (unfortunately, he appears very steadfast in his convictions). Code Visit OBSV E&M: 38623 Subsequent observation care L3
[2018-10-29 13:15] LABS: ALB/GLOB Ratio 0.9 RATIO (0.9-2.4); AST(SGOT) 23 U/L (15-37); Alanine Aminotransfer ALT/SGPT 35 U/L (16-61); Albumin, Serum 3.3 g/dL (3.2-5.0); Alkaline Phosphatase 76 U/L (45-117); Anion Gap 4 (5-15); BUN 10 mg/dL (7-18); BUN/Creat Ratio 9.3 RATIO (10-20); Chloride 103 mmol/L (98-107); Creatinine, Serum 1.08 mg/dL (0.70-1.30); EST Glomerular Filtration Rate 74 mL/min (>60); Est Glom Filt Rate - Afr Amer 90 mL/min (>60); Estimated Creatinine Clearance 72.13 ml/min; Globulin 3.5 g/dL (2.2-4.2); Glucose 108 mg/dL (74-106); Protein, Total 6.8 g/dL (6.4-8.2); Sodium Level 141 mmol/L (136-145)
--- NOTE | 2018-10-29 14:13 | DCINST_ITS ---
- Discharge Diagnoses Current Active Problems: Current Active and Chronic Problems (Last Reviewed 10/28/18 @ 22:49 by Tani Giordano MD) Hypokalemia (Acute) Hypokalemia (Acute) You will use the following diet at home:: Cardiac Your food should be the consistency of: Regular Your liquids should be the consistency of: Regular/Thin Discharge Activity: Return to Normal Activity Call your doctor if you observe: Shortness of breath, - - persistent myalgias Allergies/Adverse Reactions: Allergies No Known Allergies Allergy (Verified 10/28/18 18:40) Medications to take at Discharge Budesonide/Formoterol 160/4.5 [Symbicort 160/4.5 Mcg Inhaler (SP)] 2 puff INHALATION BID 02/27/16 Tiotropium [place] [Spiriva 18 MCG] 1 puff INHALATION DAILY 11/27/16 fluticasone propionate 50 mcg/actuation nasal spray,suspension 1 puff INTRANASAL BID 30 Days #16 05/20/17 bupropion HCl 75 mg tablet 75 mg PO BID 30 Days #60 tab 06/07/18 hydrocodone 5 mg-acetaminophen 325 mg tablet 1 tab PO DAILY PRN PRN 28 Days #56 tab 06/07/18 escitalopram 5 mg tablet 2.5 mg PO BID 30 Days #60 tab 07/08/18 tizanidine 4 mg tablet 4 mg PO QHS 30 Days #60 tab 07/08/18 torsemide 20 mg tablet 40 mg PO DAILY 30 Days #60 tab 08/09/18 amlodipine 5 mg tablet 5 mg PO BID #60 tab 09/01/18 carvedilol 6.25 mg tablet 6.25 mg PO BID #120 tab 09/01/18 Linaclotide [Linzess] 72 mcg PO DAILY 10/21/18 Magnesium Oxide 800 mg PO BID #10 tab 10/26/18 Potassium Chl Soln 20 meq PO BID #10 dose 10/26/18 Carvedilol [Coreg (Beta Celestino)] 6.25 mg PO BID tab 10/29/18 Primary Care Physician: Gabrielle Galeana DO [Primary Care Provider] - 10/31/18 Test Results: Test results from this visit will be discussed in further detail at your follow-up appointment, if applicable. Please Follow Up With: Cleo Cornelius MD When: 11/01/18 Proposed Discharge Date: 10/29/18
--- NOTE | 2018-10-29 14:16 | DS.PCM_ITS ---
Discharge Date and Diagnosis - Problem List Patient Problems: Active and Suspected Problems (Last Reviewed 10/28/18 @ 22:49 by Tani Giordano MD) Hypokalemia (Acute) Hypokalemia (Acute) Date of Admission: 10/28/18 Date of Discharge: 10/29/18 - Primary Discharge Diagnosis Active and Suspected Problems (Last Reviewed 10/28/18 @ 22:49 by Tani Giordano MD) Hypokalemia (Acute) Hypokalemia (Acute) - Secondary Discharge Diagnosis Chronic Problems (Last Reviewed 10/28/18 @ 22:49 by Tani Giordano MD) Dizziness (Chronic) Secondary pulmonary arterial hypertension (Chronic) Essential (primary) hypertension (Chronic) Palpitations (Chronic) Hyperlipidemia (Chronic) Hospital Course and Treatment Operations: None Procedures: None Summary of Care Provided: The patient is a 57 year old M presents with persistent hypokalemia. Patient received oral as well as IV replacements in the emergency room and his potassium is steadily improved. Patient has been on torsemide for. Of time and as of this year, he has had some low potassiums but patient just complains of feeling weak and some myalgias so it is felt to be at least attributable to his potassium. Patient does endorse some subjective improvements in how he feels with improvement of his potassium. Plan is for the patient continue with the potassium replacement. His hyperkalemia was also comp gated by hypomagnesemia but that has improved with replacement. Patient has follow-up appointment with his primary care provider on the as well as with nephrology on the . I do not feel that this is related with a intrinsic chronic kidney disease as patient has never had hypokalemia up until this year before. [] Patient Problems: Active and Suspected Problems (Last Reviewed 10/28/18 @ 22:49 by Tani Giordano MD) Hypokalemia (Acute) Hypokalemia (Acute) - Physical Exam Vital Signs Temp Pulse Resp BP Pulse Ox 36.8 C 79 16 104/52 L 95 10/29/18 08:37 10/29/18 11:00 10/29/18 08:37 10/29/18 08:37 10/29/18 08:37 Oxygen Delivery Method Room Air Weight: 153.7 kg Body Mass Index (BMI) 51.5 Intake and Output for Last 24 Hours 10/27/18 10/28/18 10/29/18 23:59 23:59 23:59 Intake Total 640 / 640 1104 / 1104 Output Total 200 / 200 820 / 820 Balance 440 / 440 284 / 284 Laboratory Tests Past 24 Hrs 10/28/18 10/28/18 10/28/18 18:50 18:50 18:50 WBC 4.9 RBC 4.18 L Hgb 12.6 L Hct 37.0 L MCV 88.5 MCH 30.1 MCHC 34.1 RDW Std Deviation 43.3 RDW Coeff of Jordin 13.4 Plt Count 169 MPV 10.5 Immature Gran % (Auto) 0.400 Neut % (Auto) 55.1 Lymph % (Auto) 32.6 [place] % (Auto) 8.6 Eos % (Auto) 3.1 Baso % (Auto) 0.2 Absolute Neuts (auto) 2.7 Absolute Lymphs (auto) 1.59 Nucleated RBC % 0 Sodium 140 Potassium 2.6 L* Chloride 98 Carbon Dioxide 37.0 H Anion Gap 5 BUN 11 Creatinine 1.07 Estim Creat Clear Calc 77.70 Est GFR (MDRD) Af Amer 91 Est GFR (MDRD) Non-Af 75 BUN/Creatinine Ratio 10.3 Glucose 112 H Calcium 8.3 L Magnesium 1.5 L Total Bilirubin AST ALT Alkaline Phosphatase Total Protein Albumin Globulin Albumin/Globulin Ratio Urine Potassium 10/28/18 10/29/18 10/29/18 23:33 05:55 05:55 WBC 3.8 L RBC 3.79 L Hgb 11.5 L Hct 34.2 L MCV 90.2 MCH 30.3 MCHC 33.6 RDW Std Deviation 44.8 H RDW Coeff of Jordin 13.6 Plt Count 140 L MPV 11.0 Immature Gran % (Auto) 0.300 Neut % (Auto) 44.9 L Lymph % (Auto) 40.6 [place] % (Auto) 9.5 Eos % (Auto) 4.2 Baso % (Auto) 0.5 Absolute Neuts (auto) 1.7 L Absolute Lymphs (auto) 1.53 Nucleated RBC % 0 Sodium 147 H Potassium 2.8 L Chloride 102 Carbon Dioxide 36.0 H Anion Gap 9 BUN 12 Creatinine 0.94 Estim Creat Clear Calc 82.87 Est GFR (MDRD) Af Amer 106 Est GFR (MDRD) Non-Af 88 BUN/Creatinine Ratio 12.8 Glucose 92 Calcium 8.4 L Magnesium Total Bilirubin AST ALT Alkaline Phosphatase Total Protein Albumin Globulin Albumin/Globulin Ratio Urine Potassium 25.0 10/29/18 10/29/18 05:55 12:35 WBC RBC Hgb Hct MCV MCH MCHC RDW Std Deviation RDW Coeff of Jordin Plt Count MPV Immature Gran % (Auto) Neut % (Auto) Lymph % (Auto) [place] % (Auto) Eos % (Auto) Baso % (Auto) Absolute Neuts (auto) Absolute Lymphs (auto) Nucleated RBC % Sodium 141 Potassium 3.0 L Chloride 103 Carbon Dioxide 34.0 H Anion Gap 4 L BUN 10 Creatinine 1.08 Estim Creat Clear Calc 72.13 Est GFR (MDRD) Af Amer 90 Est GFR (MDRD) Non-Af 74 BUN/Creatinine Ratio 9.3 L Glucose 108 H Calcium 9.0 Magnesium 2.0 Total Bilirubin 0.80 AST 23 ALT 35 Alkaline Phosphatase 76 Total Protein 6.8 Albumin 3.3 Globulin 3.5 Albumin/Globulin Ratio 0.9 Urine Potassium Discharge Diet: Low fat/ Low Cholesterol Discharge Activity: Return to Normal Activity Call your doctor if you observe: Shortness of breath, - - persistent myalgias Home Medications: Medications to take at Discharge Budesonide/Formoterol 160/4.5 [Symbicort 160/4.5 Mcg Inhaler (SP)] 2 puff INHALATION BID 02/27/16 Tiotropium [place] [Spiriva 18 MCG] 1 puff INHALATION DAILY 11/27/16 fluticasone propionate 50 mcg/actuation nasal spray,suspension 1 puff INTRANASAL BID 30 Days #16 05/20/17 bupropion HCl 75 mg tablet 75 mg PO BID 30 Days #60 tab 06/07/18 hydrocodone 5 mg-acetaminophen 325 mg tablet 1 tab PO DAILY PRN PRN 28 Days #56 tab 06/07/18 escitalopram 5 mg tablet 2.5 mg PO BID 30 Days #60 tab 07/08/18 tizanidine 4 mg tablet 4 mg PO QHS 30 Days #60 tab 07/08/18 torsemide 20 mg tablet 40 mg PO DAILY 30 Days #60 tab 08/09/18 amlodipine 5 mg tablet 5 mg PO BID #60 tab 09/01/18 carvedilol 6.25 mg tablet 6.25 mg PO BID #120 tab 09/01/18 Linaclotide [Linzess] 72 mcg PO DAILY 10/21/18 Magnesium Oxide 800 mg PO BID #10 tab 10/26/18 Potassium Chl Soln 20 meq PO BID #10 dose 10/26/18 Carvedilol [Coreg (Beta [place])] 6.25 mg PO BID tab 10/29/18 Primary Care Physician: Gabrielle Galeana DO [Primary Care Provider] - 10/31/18 Please Follow Up With: Cleo Cornelius MD When: 11/01/18 Disposition: Home Minutes spent on discharge:: 40 Patient Condition:: Good Medical Necessity - Tobacco Use Smoking Status: Former smoker - Patient used to chew cigars. Meaningful Use Info Meaningful Use Diagnoses (Choose all that apply): None applicable Code Visit OBSV E&M: 69149 Observation care discharge
[2018-10-29] MEDS: Potassium Chloride 10mEq/100mL 10 MEQ/100 ML IV.SOLN. 100 MEQ IV BOLUS ×2 (14:24→15:33)
[2018-10-29] MEDS: 0.9% NaCl Peripheral Flush Adult/Peds IV (14:24)
--- NOTE | 2018-10-29 16:30 | NURSING ---
Discharge teaching complete. Questions answered. Patient voiced understanding of same.
== END 2018-10-29 14:14 | disposition home or self-care (01) ==
LOC: ED 20:26 → PCU 21:35
PROVIDERS: Admitting Provider Hospitalist; Emergency Provider Emergency Medicine; Family Provider Internal Medicine; PCP Internal Medicine
DX: E87.6 Hypokalemia (principal); J44.9 Chronic obstructive pulmonary disease, unspecified; E66.01 Morbid (severe) obesity due to excess calories; M79.7 Fibromyalgia; I27.21 Secondary pulmonary arterial hypertension; E78.5 Hyperlipidemia, unspecified; K21.9 Gastro-esophageal reflux disease without esophagitis; I50.22 Chronic systolic (congestive) heart failure; I11.0 Hypertensive heart disease with heart failure; K58.9 Irritable bowel syndrome, unspecified; G89.29 Other chronic pain; G47.33 Obstructive sleep apnea (adult) (pediatric); F31.9 Bipolar disorder, unspecified; M06.4 Inflammatory polyarthropathy; F41.9 Anxiety disorder, unspecified; Z68.43 Body mass index [BMI] 50.0-59.9, adult; Z71.3 Dietary counseling and surveillance; Z79.899 Other long term (current) drug therapy; Z79.51 Long term (current) use of inhaled steroids; Z87.891 Personal history of nicotine dependence
CPT/HCPCS: 36415; 80048; 80053; 83735; 84132; 84133; 85025; 93005; 96360; 96361; 99218; 99284; J7030; A4216; G0378

== ENCOUNTER → 2018-10-28 | Outpatient (CLI) | payer MEDICARE, SELFPAY ==
[2018-10-26 18:13] VITALS: BMI 46.6
[2018-10-28 11:29] LABS: Magnesium 1.7 mg/dL (1.6-2.6); Potassium 2.6 mmol/L (3.5-5.1)
== END | disposition home or self-care (01) ==
LOC: LABSPEC 10:31
PROVIDERS: Family Provider Internal Medicine; PCP Internal Medicine; Referring Provider Internal Medicine; Visit Provider Internal Medicine
DX: E87.6 Hypokalemia (principal)
CPT/HCPCS: 83735; 84132

== ENCOUNTER → 2018-10-31 | Outpatient (CLI) | payer MEDICARE, SELFPAY ==
[2018-10-28 21:28] VITALS: BMI 51.5
[2018-10-31 12:56] LABS: Magnesium 1.6 mg/dL (1.6-2.6); Potassium 3.1 mmol/L (3.5-5.1)
== END | disposition home or self-care (01) ==
LOC: LABSPEC 12:17
PROVIDERS: Family Provider Internal Medicine; PCP Internal Medicine; Referring Provider Internal Medicine; Visit Provider Internal Medicine
DX: E87.6 Hypokalemia (principal)
CPT/HCPCS: 83735; 84132

== ENCOUNTER → 2018-11-07 | Outpatient (CLI) | payer MEDICARE, SELFPAY ==
[2018-10-28 21:28] VITALS: BMI 51.5
[2018-11-07 12:53] LABS: Anion Gap 5 (5-15); BUN 13 mg/dL (7-18); BUN/Creat Ratio 12.1 RATIO (10-20); Calcium,Total 9.3 mg/dL (8.5-10.1); Chloride 107 mmol/L (98-107); Creatinine, Serum 1.07 mg/dL (0.70-1.30); EST Glomerular Filtration Rate 75 mL/min (>60); Est Glom Filt Rate - Afr Amer 91 mL/min (>60); Glucose 100 mg/dL (74-106); Magnesium 1.8 mg/dL (1.6-2.6); Potassium 4.6 mmol/L (3.5-5.1); Sodium Level 142 mmol/L (136-145)
== END | disposition home or self-care (01) ==
LOC: LABSPEC 12:26
PROVIDERS: Family Provider Internal Medicine; PCP Internal Medicine; Referring Provider Internal Medicine; Visit Provider Internal Medicine
DX: E87.6 Hypokalemia (principal)
CPT/HCPCS: 80048; 83735

== ENCOUNTER → 2019-06-01 09:20 | Outpatient (CLI) | payer MEDICARE, SELFPAY ==
[2019-03-10 14:36] VITALS: BMI 51.6
--- NOTE | 2019-06-01 09:27 | BI_ITS ---
MAMMOGRAPHY - BILATERAL DIAGNOSTIC REASON FOR EXAM: Male, 58 years old. Right breast pain. PERTINENT HISTORY: Mother with breast cancer. TECHNIQUE: Digital bilateral breast kelechi (3D mammographic acquisition) in the CC and MLO projections. 2-D mediolateral oblique (MLO) and craniocaudad (CC) views of both breasts were obtained. CAD: Full Field Digital Mammography with Computer Added Detection was performed. COMPARISON: Comparison is made with prior outside mammogram dated August 19, 2016. FINDINGS: Breast Composition: The breasts are almost entirely fatty. There are no dominant masses or suspicious calcifications. No other significant abnormalities are identified. BI/DIAG MAMM W/CAD, BILAT IMPRESSION: Stable bilateral diagnostic mammogram. With the patient''s history of right breast pain, correlation with ultrasound is recommended. ASSESSMENT CATEGORY: BIRADS Category 0: Incomplete. Need additional imaging evaluation. A letter regarding these results will be sent to the patient by the facility within 30 days. Approximately 10% of breast cancers are not detected by mammography. A normal mammogram should not delay biopsy of a clinically suspicious abnormality. Electronically Signed: Tolu Gastelum, at 11:56 EDT , Service support ,
--- NOTE | 2019-06-01 09:27 | US_ITS ---
STUDY: ULTRASOUND BREAST - RIGHT REASON FOR EXAM: Male, 58 years old. Pain in the right breast. TECHNIQUE: Axial and longitudinal images of the RIGHT breast were performed with a high resolution ultrasound transducer. # OF IMAGES: 35 COMPARISON: Comparison is made with prior mammogram done earlier in the day. FINDINGS: RIGHT Breast: The entire breast was examined by ultrasound. No sonographic abnormality is seen. US/Breast Limited Unilateral IMPRESSION: No sonographic abnormality is seen. ASSESSMENT CATEGORY: BIRADS Category 1: Negative. A letter regarding these results will be sent to the patient by the facility within 30 days. Electronically Signed: Tolu Gastelum, at 14:57 EDT , Service support ,
== END ==
PROVIDERS: PCP Internal Medicine; Visit Provider Internal Medicine
DX: N63.0 Unspecified lump in unspecified breast (principal); N64.4 Mastodynia
CPT/HCPCS: 76642; 77062; 77066; G0279

== ENCOUNTER → 2019-06-05 | Outpatient (CLI) | payer MEDICARE, SELFPAY ==
[2019-03-10 14:36] VITALS: BMI 51.6
--- NOTE | 2019-06-05 08:06 | US_ITS ---
STUDY: ABDOMINAL ULTRASOUND REASON FOR EXAM: Male, 58 years old. ABDOMEN DISTENTION TECHNIQUE: Transabdominal ultrasound was performed with real-time and static connelly scale imaging. TECHNICAL QUALITY: Limited. Examination limited due to obesity. COMPARISON: None. FINDINGS: Liver: The liver is enlarged and measures 20.9 cm. There is normal echogenicity of the liver. The bile ducts are within normal limits. There is hepatic color flow. The direction of portal flow is hepatopetal. There is no demonstrated mass lesion. Portal vein measurement: Gallbladder: The patient is status post cholecystectomy. Common Bile Duct (C.B.D.): The common bile duct was not visualized due to overlying bowel gas and body habitus. Pancreas: There is nonvisualization of the pancreas. Spleen: There is splenomegaly. The spleen measures 13.8 cm x 8.1 cm x 7.4 cm. Right Kidney: Normal size of the right kidney. The right kidney measures 12.6 cm x 6.2 cm x 6.1 cm. Normal renal cortex. The right cortex measures 1.9 cm. There is no demonstrated renal mass or cyst. There is no right hydronephrosis. Left Kidney: Normal size of the left kidney. The left kidney measures 13.6 cm x 5.7 cm x 5.7 cm. Normal renal cortex. The left cortex measures 1.8 cm. There is no demonstrated renal mass or cyst. There is no left hydronephrosis. There is no ascites. US/Abdomen Complete IMPRESSION: Hepatosplenomegaly. The patient is status post cholecystectomy. Electronically Signed: Tolu Gastelum, at 9:30 EDT , Service support ,
[2019-06-05 09:44] LABS: Absolute Lymphocyte Count 1.49 X10^3/uL (0.83-4.51); Basophil# 0.03 X10^3/uL; Basophil% 0.6 % (0-1); Eosinophil# 0.15 X10^3/uL; Eosinophils% 2.9 % (0-5); Hematocrit 43.9 % (40-54); Lymphocyte # 1.49 X10^3/ul (4.0); Lymphocyte % 28.9 % (19-41); Mean Corp Hgb Conc 31.9 g/dL (32-36); Mean Corpuscular Hgb 27.7 pg (27.0-32.0); Mean Corpuscular Volume 86.9 fL (80-94); Mean Platelet Vol. 11.2 fl (6.2-12.0); Monocyte# 0.48 X10^3/uL; Monocyte% 9.3 % (0-10); NRBC Flagged by Analyzer 0 % (0-5); Neutrophil # 2.99 X10^3/uL (2.7-7.7); Neutrophil % 57.9 % (47-70); Platelet Count 166 K/mm3 (150-450); RBC Distribution Width CV 13.5 % (11.6-14.6); RBC Distribution Width SD 41.8 fl (35.1-43.9); Red Blood Count 5.05 M/mm3 (4.6-6.2); White Blood Count 5.2 K/mm3 (4.4-11.0)
[2019-06-05 10:08] LABS: Anion Gap 4 (5-15); BUN 15 mg/dL (7-18); BUN/Creat Ratio 14.2 RATIO (10-20); Calcium,Total 9.3 mg/dL (8.5-10.1); Chloride 104 mmol/L (98-107); Creatinine, Serum 1.06 mg/dL (0.70-1.30); EST Glomerular Filtration Rate 76 mL/min (>60); Est Glom Filt Rate - Afr Amer 92 mL/min (>60); Glucose 93 mg/dL (74-106); Potassium 3.5 mmol/L (3.5-5.1); Sodium Level 142 mmol/L (136-145)
== END | disposition home or self-care (01) ==
PROVIDERS: PCP Internal Medicine; Referring Provider Internal Medicine; Visit Provider Internal Medicine
DX: R14.0 Abdominal distension (gaseous) (principal); R53.1 Weakness
CPT/HCPCS: 36415; 76700; 80048; 85025

== ENCOUNTER → 2019-07-01 09:07 | Outpatient (CLI) | payer MEDICARE, SELFPAY ==
[2019-03-10 14:36] VITALS: BMI 51.6
[2019-07-01 09:33] LABS: Absolute Neutrophil Count 3.1 X10^3/uL (2.0-7.7); Basophil# 0.03 X10^3/uL; Basophil% 0.5 % (0-1); Eosinophil# 0.21 X10^3/uL; Eosinophils% 3.8 % (0-5); Hematocrit 43.5 % (40-54); Hemoglobin 14.1 g/dL (13.0-16.5); Lymphocyte % 29.3 % (19-41); Mean Corp Hgb Conc 32.4 g/dL (32-36); Mean Corpuscular Hgb 27.8 pg (27.0-32.0); Mean Corpuscular Volume 85.8 fL (80-94); Mean Platelet Vol. 11.1 fl (6.2-12.0); Monocyte# 0.53 X10^3/uL; Monocyte% 9.7 % (0-10); NRBC Flagged by Analyzer 0 % (0-5); Neutrophil # 3.08 X10^3/uL (2.7-7.7); Neutrophil % 56.5 % (47-70); Platelet Count 219 K/mm3 (150-450); RBC Distribution Width CV 13.4 % (11.6-14.6); RBC Distribution Width SD 41.3 fl (35.1-43.9); Red Blood Count 5.07 M/mm3 (4.6-6.2); White Blood Count 5.5 K/mm3 (4.4-11.0)
[2019-07-01 09:51] LABS: Hemoglobin A1c 5.1 % (3.8-5.6)
== END ==
PROVIDERS: PCP Internal Medicine; Referring Provider Internal Medicine; Visit Provider Internal Medicine
DX: R79.9 Abnormal finding of blood chemistry, unspecified (principal)
CPT/HCPCS: 36415; 83036; 85025

== ENCOUNTER → 2019-08-29 | Outpatient (CLI) | payer MEDICARE, SELFPAY ==
[2019-03-10 14:36] VITALS: BMI 51.6
--- NOTE | 2019-08-29 17:50 | CT_ITS ---
STUDY: CT ABDOMEN AND PELVIS WITH CONTRAST REASON FOR EXAM: Male, 58 years old. Bloating and diarrhea. History of cholecystectomy diabetes and hernia repair. RADIATION DOSAGE (If Supplied By Facility): CTDIvol = ( 36.17 ) mGy, DLP = ( 1861.01 ) mGycm TECHNIQUE: Transaxial images were obtained from the dome of the diaphragm to the symphysis pubis with oral contrast. Oral and amp; IV Readi-CAT and amp; 100mL Isovue-370 was administered. Sagittal and coronal images were reconstructed. Individualized dose optimization techniques were used for this CT. COMPARISON: PET/CT scan, January 20, 2016. FINDINGS: The visualized lung bases are unremarkable. The visualized portions of the heart are within normal limits. A remote right rib fractures. Diffuse fatty infiltration of the liver without focal mass. The gallbladder is not visualized and thought surgically absent. Normal spleen. Normal pancreas. Normal bilateral adrenal glands. Normal right kidney. Normal left kidney. Normal visualized ureters Normal visualized stomach. Normal small intestine. Normal colon. The appendix is visualized and appears normal. There is diffuse atherosclerotic calcification of the abdominal aorta, without a demonstrated aneurysm. Normal inferior vena cava. Normal retroperitoneum. Normal urinary bladder. Normal prostate. There is no pelvic lymphadenopathy. No free air or free fluid is seen within the peritoneal cavity. Umbilical hernia of omental fat. The abdominal wall is otherwise unremarkable. Marked degenerative changes of the lumbar spine. CT/Abdomen/Pelvis WITH Contrast IMPRESSION: No acute intra-abdominal or pelvic abnormality or major interval change. Electronically Signed: Edison Munguia DO at 21:23 EDT Tel [phone], Service support ,
[2019-08-29 18:54] LABS: ALB/GLOB Ratio 1.1 RATIO (0.9-2.4); AST(SGOT) 28 U/L (15-37); Alanine Aminotransfer ALT/SGPT 43 U/L (16-61); Albumin, Serum 3.8 g/dL (3.2-5.0); Alkaline Phosphatase 84 U/L (45-117); Anion Gap 4 (5-15); BUN 9 mg/dL (7-18); Calcium,Total 8.6 mg/dL (8.5-10.1); Chloride 99 mmol/L (98-107); Creatinine, Serum 1.13 mg/dL (0.70-1.30); EST Glomerular Filtration Rate 70 mL/min (>60); Est Glom Filt Rate - Afr Amer 85 mL/min (>60); Globulin 3.5 g/dL (2.2-4.2); Glucose 87 mg/dL (74-106); Potassium 3.3 mmol/L (3.5-5.1); Protein, Total 7.3 g/dL (6.4-8.2); Sodium Level 136 mmol/L (136-145)
== END | disposition home or self-care (01) ==
LOC: CT 17:48
PROVIDERS: PCP Internal Medicine
DX: K52.839 Microscopic colitis, unspecified (principal); K52.9 Noninfective gastroenteritis and colitis, unspecified; R14.0 Abdominal distension (gaseous); R16.2 Hepatomegaly with splenomegaly, not elsewhere classified
CPT/HCPCS: 36415; 74177; 80053

== ENCOUNTER → 2019-09-11 | Outpatient (CLI) | payer MEDICARE, SELFPAY ==
[2019-03-10 14:36] VITALS: BMI 51.6
== END | disposition home or self-care (01) ==
PROVIDERS: PCP Internal Medicine
DX: K52.839 Microscopic colitis, unspecified (principal)
CPT/HCPCS: 82705; 83993; 87493

== ENCOUNTER → 2019-09-28 | Outpatient (CLI) | payer MEDICARE, SELFPAY ==
[2019-03-10 14:36] VITALS: BMI 51.6
--- NOTE | 2019-09-28 08:30 | RAD_ITS ---
STUDY: SMALL BOWEL FOLLOW-THROUGH. REASON FOR EXAM: Male, 58 years old. CHRONIC DIARRHEA VS CONSTIPATION, RIGHT SIDE BLOATING AND CRAMPING, HX GB REMOVAL 5 FLUORO SPOTS, 60.83mGy, 55 FLUORO SEC TECHNIQUE: Multiple views of the abdomen were performed after barium ingestion fluoroscopic examination of the terminal ileal loop is also performed with multiple spot views were obtained COMPARISON: None. FINDINGS: [employer] view: The bowel gas pattern is unremarkable there is no evidence of free air in the abdomen. Small bowel follow-through: Normal progression of barium is seen throughout different parts of the small bowel the cecum is reached at approximately 2 hours after barium ingestion. The duodenum, jejunum, and ileum mucosal pattern is unremarkable. Fluoroscopic examination of the terminal loop shows no abnormality. RAD/Small Bowel Series Only IMPRESSION: Unremarkable study. Electronically Signed: Sanjiv Pierce, at 14:58 EDT Tel , Service support ,
== END | disposition home or self-care (01) ==
LOC: RAD 08:21
PROVIDERS: PCP Internal Medicine
DX: K52.9 Noninfective gastroenteritis and colitis, unspecified (principal); K52.839 Microscopic colitis, unspecified; R10.84 Generalized abdominal pain; R14.0 Abdominal distension (gaseous)
CPT/HCPCS: 74250

== ENCOUNTER 2020-04-15 12:33 | Observation (INO) | payer MEDICARE, SELFPAY ==
[2019-11-09 13:40] VITALS: BMI 53.1
[2020-04-15 12:34] VITALS: BP 144/75; PULSE 79; RESP 17; TEMP 36.3; O2SAT 95; BMI 55.2
--- NOTE | 2020-04-15 12:52 | ED.VISSUMM ---
- ER Visit Summary Date of Service: 04/15/20 Chief Complaint: Back pain History of Present Illness: The patient is a 59 M who presents with chronic back pain that has gotten worse over the past 4 days. Patient denies any trauma or injury. Patient states the pain is over the lower lumbar area. Patient states the pain is sharp. Patient states the pain is worse with any movement or attempted ambulation. Patient states the pain radiates to both lower extremities. Patient admits to numbness and tingling all over my body. Patient denies any incontinence of urine or stool. Patient denies any saddle anesthesia. Physical Examination: Vital signs are stable. Patient is afebrile. Patient is in no acute distress. Musculoskeletal exam reveals tenderness over the lower lumbar paraspinal muscles. There is no bony crepitance or step-off. Range of motion was limited in all motions of the lumbar spine secondary to pain. Strength is 5/5 bilaterally in the lower extremities. There are no sensory deficits noted. Deep tendon reflexes are 1/4 bilaterally in the patellar and Achilles reflexes. Test Results: X-rays of the lumbar spine were obtained. There are 2 views. On my interpretation, there are degenerative changes. There is no acute fracture. There is no spondylolisthesis or spondylolysis. Radiologist also interpreted the x-rays and agrees. Emergency Department Course and Treatment: Patient was given an injection of Dilaudid here. Patient had no improvement with this. Patient refused a repeat dose of Dilaudid. Patient was given a dose of oxycodone. Case was discussed with the hospitalist. She will admit the patient for observation. Patient understood and was agreeable with the plan. All questions were answered. Disposition: Admit to hospital Impression: 1. Intractable back pain 2. Morbid obesity with BMI greater than 50 This note was generated with [employer] dictation software. It may contain incorrect words, spelling, and punctuation that were not noted in review of the chart prior to signing ED Disposition - Plan for ED Patient: Disposition: Acute Care Hospital [facility] Diagnosis: Intractable low back pain, Morbid obesity with BMI of 50.0-59.9, adult Referrals: Gabrielle Galeana DO [Primary Care Provider] -
[2020-04-15] MEDS: HYDROmorphone 0.5 MG/0.5 ML SYRINGE SC (13:01)
--- NOTE | 2020-04-15 14:00 | ED.RN ---
pt reports shot did not work. states he cant get up he cant walk and if he does get up he will be on the floor and i will be picking him up. dr mares pt continues to report pain and is unable to move
--- NOTE | 2020-04-15 14:10 | ED.RN ---
pt refusing dilaudid. reports that the first shot didnt work theres no point in another one. pt continues to insist that he needs an xray. dr mares
--- NOTE | 2020-04-15 14:15 | ED.RN ---
assisted pt with use of urinal continues to report that he can not get up and can not move.
--- NOTE | 2020-04-15 14:20 | RAD_ITS ---
STUDY: X-RAY - LUMBAR SPINE REASON FOR EXAM: Male, 59 years old. Injury/Pain TECHNIQUE: 2 view(s) of the lumbar spine were obtained. COMPARISON: None FINDINGS: Normal lumbar lordosis. There is no substantial scoliosis. There is a normal alignment of the vertebrae. There is multilevel endplate spondylosis of the lumbar vertebrae. There is multi-level degenerative disc disease with multi-level disc space narrowing. The soft tissue structures are unremarkable. RAD/Lumbar Spine 2 or 3 Views IMPRESSION: Degenerative changes of the spine, as detailed above. Electronically Signed: Sanjiv Pierce MD at 15:56 EST Tel , Service support ,
[2020-04-15 14:52] VITALS: BP 138/83; PULSE 78; RESP 18; TEMP 36.8; O2SAT 94
[2020-04-15] MEDS: oxyCODONE 5 MG Tablet PO ×2 (14:54→17:12)
--- NOTE | 2020-04-15 15:18 | HP.PCM_ITS ---
History of Present Illness Date of Admission: 04/15/20 Mr. Deras is a 59 year old morbidly obese WM with a past medical history of chronic low back pain, bipolar disorder, COPD, fibromyalgia, GERD, hyperlipidemia, insulin resistance, obstructive sleep apnea, and morbid obesity, sarcoidosis, secondary pulmonary hypertension, and tobacco abuse who presents to the emergency department at [facility] on 04/15/2020 with a primary complaint of intractable low back pain. The patient reports that he has had issues with low back pain for 20 to 30 years now. Has been seen by a surgeon in the past and did have surgery remotely. It sounds like he had a discectomy at that time. He states that he has had chronic issues with this and is followed up with Dr. Pinto but it has been a while since he seen him. He is on pain medication, CBD drops, and muscle relaxants for his pain at baseline. He states since last has not been able to move related to his back pain. He states has not had a bowel movement since then because he is not been eating regularly because it hurts so badly to move that he does not want have to get up and have a bowel movement. He denies any focal deficits but notes generalized weakness related to pain. He is able to move his bowels at baseline he is not having any issues with incontinence. And he is urinating without difficulty although he does state it cardona and has not been taking his furosemide because of the burning with urination. He also has complaints of right ankle pain that he thinks is related to gout. Vital signs in the emergency department are unremarkable. No laboratory was performed. 2 views of the lumbar spine were performed and while the read is pending it does show significant spurring throughout the lumbar spine and disc collapse at the L3-L4 level, buttoning of the lumbar curve, and significant aortic calcification. He will be admitted to medical surgical unit for consultation with Dr. Pinto and attempts at pain control. Here reports that for his MRI imaging he usually has to go to either [place] or [place] for an open MRI. Past Medical History Past Medical History (Chronic Problems): Chronic Problems (Last Reviewed 11/09/19 @ 15:[address] Chun Gurrola MD) Hypokalemia (Chronic) Essential (primary) hypertension (Chronic) Hyperlipidemia (Chronic) Secondary pulmonary arterial hypertension (Chronic) Medical History: Medical History (Last Reviewed 04/15/20 @ 15:[address] Mercy Matthew DO) Hypokalemia (Chronic) E87.6 Essential (primary) hypertension (Chronic) I10 Hyperlipidemia (Chronic) E78.5 Secondary pulmonary arterial hypertension (Chronic) I27.21 Anxiety F41.9 Bipolar disorder F31.9 COPD (chronic obstructive pulmonary disease) J44.9 Chronic fatigue and malaise R53.82, R53.81 Fibromyalgia GERD (gastroesophageal reflux disease) K21.9 Inflammatory polyarthritis M06.4 Morbid obesity with BMI of 45.0-49.9, adult E66.01, Z68.42 Obstructive sleep apnea G47.33 Sarcoidosis D86.9 Tobacco abuse Z72.0 Chest discomfort R07.89 Dyspnea on exertion R06.09 Allergies No Known Allergies Allergy (Verified 11/09/19 13:41) Home Medications: Ambulatory Orders Medication Instructions Recorded Budesonide/Formoterol 160/4.5 2 puff INHALATION BID 02/27/16 [Symbicort 160/4.5 Mcg Inhaler (SP)] fluticasone propionate 50 1 puff INTRANASAL BID 30 Days #16 05/20/17 mcg/actuation nasal spray,suspension ipratropium bromide 0.03 % nasal 2 spray INTRANASAL BID 12/05/18 spray bupropion HCl 100 mg tablet 100 mg PO BID tab 11/09/19 buspirone 10 mg tablet 10 mg PO BID 11/09/19 tizanidine 4 mg tablet 8 mg PO QHS 30 Days #60 tab 11/09/19 carvedilol 12.5 mg tablet 12.5 mg PO BID #180 tab 11/17/19 amlodipine 5 mg tablet 5 mg PO DAILY #90 tab 01/25/20 Albuterol Sulfate [Albuterol 1 - 2 puff INHALATION Q4H PRN PRN 04/15/20 Sulfate HFA] Hydrocodone/Acetaminophen 1 ea PO TID PRN PRN 04/15/20 [Hydrocodon-Acetaminophn 10-325] Loratadine 10 mg PO DAILY 04/15/20 Metformin HCl 500 mg PO BID 04/15/20 Torsemide 20 mg PO DAILY PRN PRN 04/15/20 Surgical History: Surgical History (Last Reviewed 04/15/20 @ 15:[address] Mercy Matthew DO) H/O: knee surgery Z98.890 02/28/2014 History of colonoscopy Onset Date: 04/2018 Z98.890 History of esophagogastroduodenoscopy (EGD) Onset Date: 04/2018 Z98.890 History of gastric bypass Onset Date: 2017 Z98.84 History of herniorrhaphy Z98.890, Z87.19 History of left heart catheterization Onset Date: 05/22/14 Z98.890 History of lumbar surgery Z98.890 History of right heart catheterization Onset Date: 11/30/16 Z98.890 History of thoracentesis Z98.890 05/2009 ankle surgery Surgical History: noncontributory, - Psychiatric History: No pertinent psych hx Lives: Spouse/ Significant Other Smoking Status: Former smoker Tobacco Use: Chew Alcohol: Rare Drugs: - - CBD oil drops - *Family History Maternal Family History: Family History (Last Reviewed 04/15/20 @ 15:[address] Mercy Matthew DO) Father CAD (coronary artery disease) CVA (cerebral vascular accident) Hypercholesterolemia Mother Arthritis Breast cancer Osteoporosis Heart disease Sister CAD (coronary artery disease) History Items: No pertinent history, - - No sarcoidosis Paternal Family History: Family History (Last Reviewed 04/15/20 @ 15:[address] Mercy Matthew DO) Father CAD (coronary artery disease) CVA (cerebral vascular accident) Hypercholesterolemia Mother Arthritis Breast cancer Osteoporosis Heart disease Sister CAD (coronary artery disease) History Items: - - No sarcoidosis Review of Systems Constitutional: Denies: Anorexia, Chills, Fever, Night Sweats, Malaise, Weakness, Weight Change, Fatigue Eyes: Denies: Blurred vision, Cataracts, Conjunctivae Inflammation, Double visio n, Drainage, Eyelid Inflammation, Pain, Redness, Vision Change HEENT: Denies: Difficulty Hearing, Difficulty Swallowing, Ear Pain, Eye Pain, Hard of Hearing, Head Aches, Hearing Changes, Nasal bleeding, Nasal Congestion, Post Nasal Drip, Sinus Congestion, Sinus Drainage, Sore Throat, Visual Changes Cardiovascular: Denies: Chest Pain, Claudication, Chest Pressure, Chest Tightness, Edema, Heaviness, Light Headedness, Orthopnea, Palpitations, Paroxysmal Noc. Dyspnea, Syncope Respiratory: Denies: Cough, Hemoptysis, Shortness of Breath, Shortness of breath at rest, Shortness of breath upon exertion, Sputum production, Wheezing Gastrointestinal: Reports: Constipation. Denies: Abdominal Pain, Diarrhea, Dyspepsia, Hematemesis, Hematochezia, Nausea, Melena, Vomiting Genitourinary: Reports: Dysuria, Frequency. Denies: Hematuria, Hesitancy, Incontinence, Nocturia, Retention, Urgency Musculoskeletal: Reports: Back Pain, Foot Pain - Right ankle, Joint swelling, Joint Tenderness, Muscle pain. Denies: Hand Pain, Joint Pain, Joint stiffness, Leg Pain, Neck Pain Skin: Denies: Dryness, Jaundice, Lesions, Pruritis, Rash, Skin Changes, Wounds Neurological: Denies: Balance problems, Blurred vision, Double vision, Change in Speech, Slurred speech, Confusion, Difficulty swallowing, Focal weakness, Headaches, Incoordination, Numbness, Tingling, Tremor, Seizures Psychiatric: Reports: Anxiety, Depression Endocrine: Denies: Change in Body Habitus, Heat/ Cold Intolerance, Polydipsia, Polyuria Hematologic/ Lymphatic: Denies: Adenopathy, Anemia, Easy Bruising, Easy Bleeding, Petechiae, Purpura VTE Information - Inpt Only VTE Present on Admission: No VTE Mechan Device Prophylaxis: SCD's VTE Pharm Prophylaxis ordered?: Yes Patient Problems: Active and Suspected Problems (Last Reviewed 11/09/19 @ 15:[address] Chun Gurrola MD) Intractable low back pain (Acute) Morbid obesity with BMI of 50.0-59.9, adult (Acute) - Physical Exam Vitals/I&O's: Vital Signs Temp Pulse Resp BP Pulse Ox 98.3 F 78 18 138/83 H 94 04/15/20 14:52 04/15/20 14:52 04/15/20 14:52 04/15/20 14:52 04/15/20 14:52 Oxygen Delivery Method Room Air Weight: 174.5 kg Body Mass Index (BMI) 55.2 General: Alert, Oriented x3, Cooperative, No apparent distress, Well developed, Well nourished, - - Morbidly obese white male lying in bed flat on his back, at bedside, patient appears uncomfortable but nontoxic HEENT: Atraumatic, PERRLA, EOMI, Normocephalic, EAC Clear Oral: Moist Mucosa, No Gingival or Mucosal Lesions/ Ulcerations, - - Patient has a pack of 2 in his mouth, dentition is extremely poor with nicotine stains on teeth, Mallampati is 4 Neck: Supple, No JVD, Negative Carotid Bruits, Negative Hepatojugular Reflux, No Nodes, No Nuchal Rigidity, Trachea Midline, Thyroid Normal Size and Texture, - - Short thick neck Lungs: Clear to auscultation, Normal air movement, No rhonchi, No wheeze, No rales Cardiovascular: Regular rate, Regular Rhythm, Normal S1, Normal S2, No murmurs, No Ectopic Activity, No rub noted, No Gallop Abdomen: Bowel Sounds Present, Soft, Non Tender, Non-Distended, No Hepato- splenomegaly, Obese Extremities: No clubbing, No cyanosis, Capillary Refill Less than 3 Seconds, Edema - Bilateral lower extremities right greater than left, Peripheral Pulses Normal, Tenderness - Right ankle Skin: No rashes, No breakdown, - - Feet are very dry, right ankle is mildly erythematous and warm Musculoskeletal: No Tenderness to Palpation of Joints or Extremities, No Muscle Wasting, Arthritic Changes Lymphatic: No Cervical, Supraclavicular, or Inguinal Adenopathy Neurological: Cranial nerves II-XII grossly intact, Neuro grossly intact, Muscle tone normal, Sensory exam intact to light touch and pain, Coordination normal, - - Bilateral lower extremity reflexes in bilateral upper extremity reflexes are 1+ out of 4, generalized weakness related to pain but no specific focal motor deficit Psych/Mental Status: Normal Affect, Appropriate Assessment/Plan All Active Problems (Last Reviewed 11/09/19 @ 15:[address] Chun Gurrola MD) Intractable low back pain (Acute) Morbid obesity with BMI of 50.0-59.9, adult (Acute) Dyspnea (Acute) Intermittent palpitations (Acute) Acute exacerbation of chronic obstructive pulmonary disease (Resolved) Acute respiratory failure (Resolved) Dizziness (Resolved) Hypokalemia (Resolved) Hypokalemia (Resolved) Palpitations (Resolved) Intractable low back pain on chronic low back pain -As needed oxycodone with IV medication for breakthrough -Will start with low doses but may need to titrate up -As needed muscle relaxant -Lidocaine patches -Start prednisone 40 mg daily -Gabapentin 3 times daily -Check CBC, BMP and UA to rule out UTI with dysuria -Consult Dr. Pinto for recommendations--> patient is familiar with him at baseline -Unable to perform MRI here secondary to body habitus--> recommend outpatient MRI for follow-up after discharge -Recommend surgical spine follow-up at discharge Gout R ankle -Start prednisone 40 mg daily -Taper slowly Hypertension -Continue amlodipine -Continue carvedilol Insulin resistance -Continue Metformin 500 mg twice daily COPD -Continue Symbicort -As needed albuterol nebulizers ANALI -Patient to bring in home unit -Orders placed Anxiety/depression -Continue Wellbutrin 100 mg twice daily Morbid obesity -Recommend weight loss -Weight is most certainly contributing to primary issue and likely exacerbating his musculoskeletal low back pain Tobacco abuse -Patient chews 3 packets of put tobacco a day -Declined nicotine patch on admission -We will order if patient requests in the future DVT prophylaxis -SCDs -Lovenox CODE STATUS -Full code Inpatient E&M: 76743 Init Hosp L3
[2020-04-15 15:22] VITALS: BMI 55.2
[2020-04-15 15:31] VITALS: BP 136/89; PULSE 90; RESP 16; TEMP 36.6; O2SAT 97
[2020-04-15 15:43] VITALS: BP 173/42; PULSE 50; RESP 22; TEMP 37.1; O2SAT 95
[2020-04-15 15:57] VITALS: BMI 54.4
--- NOTE | 2020-04-15 15:59 | NURSING ---
Pt request O2 to be placed on because he feels short of breath while lying in bed. O2 sat 95% on RA, O2 applied at 1L per pt request for comfort. No distress noted.
[2020-04-15 16:16] LABS: Absolute Lymphocyte Count 1.32 X10^3/uL (0.83-4.51); Absolute Neutrophil Count 5.2 X10^3/uL (2.0-7.7); Basophil# 0.02 X10^3/uL; Basophil% 0.3 % (0-1); Eosinophils% 1.4 % (0-5); Hematocrit 38.4 % (40-54); Hemoglobin 12.9 g/dL (13.0-16.5); Lymphocyte # 1.32 X10^3/ul (4.0); Lymphocyte % 18.4 % (19-41); Mean Corp Hgb Conc 33.6 g/dL (32-36); Mean Corpuscular Hgb 29.2 pg (27.0-32.0); Mean Corpuscular Volume 86.9 fL (80-94); Mean Platelet Vol. 10.9 fl (6.2-12.0); Monocyte# 0.49 X10^3/uL; Monocyte% 6.8 % (0-10); NRBC Flagged by Analyzer 0 % (0-5); Neutrophil # 5.23 X10^3/uL (2.7-7.7); Neutrophil % 72.8 % (47-70); Platelet Count 192 K/mm3 (150-450); RBC Distribution Width CV 13.5 % (11.6-14.6); RBC Distribution Width SD 42.7 fl (35.1-43.9); Red Blood Count 4.42 M/mm3 (4.6-6.2); White Blood Count 7.2 K/mm3 (4.4-11.0)
[2020-04-15 16:30] LABS: Anion Gap 7 (5-15); BUN 12 mg/dL (7-18); Calcium,Total 8.9 mg/dL (8.5-10.1); Chloride 98 mmol/L (98-107); Creatinine, Serum 0.92 mg/dL (0.70-1.30); EST Glomerular Filtration Rate 89 mL/min (>60); Est Glom Filt Rate - Afr Amer 108 mL/min (>60); Estimated Creatinine Clearance 88.16 ml/min; Glucose 102 mg/dL (74-106); Potassium 2.8 mmol/L (3.5-5.1); Sodium Level 138 mmol/L (136-145)
[2020-04-15] MEDS: Acetaminophen 325 MG Tablet 650 MG PO (17:11)
[2020-04-15 17:13] LABS: Color, Urine Yellow (Yellow); Glucose, Dipstick Normal (Normal); Ketone-Dipstick Negative (Negative); Leukocyte Esterase-Dipstick 25 /ul (Negative); Nitrite-Dipstick Negative (Negative); Occult Blood-Urine Negative /ul (Negative); Protein-Dipstick 15 mg/dl (Negative); Urine Bilirubin Dipstick Negative (Negative); Urine Clarity Clear (Clear); Urine Urobilinogen 1 mg/dl (Normal)
[2020-04-15] MEDS: tiZANidine HCl 2 MG Tablet 4 MG PO (17:13)
[2020-04-15] MEDS: 0.9% Saline Lock 10 ML Syringe IV ×2 (17:24→21:41)
[2020-04-15] MEDS: HYDROmorphone 0.5 MG/0.5 ML SYRINGE IV ×2 (17:24→21:41)
[2020-04-15] MEDS: Gabapentin 300 MG Capsule PO (17:35)
[2020-04-15] MEDS: Potassium Chloride Oral Tablet 20 MEQ 40 MEQ PO (17:35)
[2020-04-15 19:25] VITALS: RESP 18; O2SAT 97
[2020-04-15 20:43] VITALS: BP 134/74; PULSE 70; RESP 18; TEMP 37.2; O2SAT 96
[2020-04-15] MEDS: Fluticasone 0.05% 1 SPRAY NASAL.SRY NASAL (21:31)
[2020-04-15] MEDS: Carvedilol 12.5 MG Tablet PO (21:32)
[2020-04-16] VITALS (7 sets, daily range): BP systolic 109–147; BP diastolic 61–84; PULSE 71–116; RESP 18–23; TEMP 36.6–36.9; O2SAT 94–98
[2020-04-16] MEDS: tiZANidine HCl 2 MG Tablet 4 MG PO ×3 (02:19→22:18)
[2020-04-16] MEDS: oxyCODONE 5 MG Tablet PO ×3 (02:20→20:10)
[2020-04-16 05:55] LABS: Absolute Lymphocyte Count 1.23 X10^3/uL (0.83-4.51); Absolute Neutrophil Count 3.7 X10^3/uL (2.0-7.7); Basophil# 0.01 X10^3/uL; Basophil% 0.2 % (0-1); Eosinophil# 0.12 X10^3/uL; Eosinophils% 2.2 % (0-5); Hematocrit 35.9 % (40-54); Hemoglobin 11.8 g/dL (13.0-16.5); Lymphocyte # 1.23 X10^3/ul (4.0); Lymphocyte % 22.3 % (19-41); Mean Corp Hgb Conc 32.9 g/dL (32-36); Mean Corpuscular Hgb 28.9 pg (27.0-32.0); Mean Platelet Vol. 11.2 fl (6.2-12.0); Monocyte# 0.41 X10^3/uL; Monocyte% 7.4 % (0-10); NRBC Flagged by Analyzer 0 % (0-5); Neutrophil # 3.71 X10^3/uL (2.7-7.7); Neutrophil % 67.4 % (47-70); Platelet Count 175 K/mm3 (150-450); RBC Distribution Width CV 13.5 % (11.6-14.6); RBC Distribution Width SD 43.5 fl (35.1-43.9); Red Blood Count 4.08 M/mm3 (4.6-6.2); White Blood Count 5.5 K/mm3 (4.4-11.0)
[2020-04-16 06:36] LABS: ALB/GLOB Ratio 0.8 RATIO (0.9-2.4); AST(SGOT) 39 U/L (15-37); Alanine Aminotransfer ALT/SGPT 43 U/L (16-61); Albumin, Serum 2.8 g/dL (3.2-5.0); Alkaline Phosphatase 65 U/L (45-117); Anion Gap 4 (5-15); BUN 11 mg/dL (7-18); BUN/Creat Ratio 12.1 RATIO (10-20); Calcium,Total 8.6 mg/dL (8.5-10.1); Chloride 98 mmol/L (98-107); Creatinine, Serum 0.91 mg/dL (0.70-1.30); EST Glomerular Filtration Rate 90 mL/min (>60); Est Glom Filt Rate - Afr Amer 109 mL/min (>60); Estimated Creatinine Clearance 89.13 ml/min; Globulin 3.5 g/dL (2.2-4.2); Glucose 118 mg/dL (74-106); Potassium 2.7 mmol/L (3.5-5.1); Protein, Total 6.3 g/dL (6.4-8.2); Sodium Level 137 mmol/L (136-145)
[2020-04-16] MEDS: Ipratropium/Albuterol Sulfate 3 ML AMPUL.NEB INHALATION (08:21)
[2020-04-16] MEDS: 0.9% Saline Lock 10 ML Syringe IV ×4 (08:47→20:00)
[2020-04-16] MEDS: HYDROmorphone 0.5 MG/0.5 ML SYRINGE IV ×2 (08:47→19:59)
[2020-04-16] MEDS: Potassium Chloride 10mEq/100mL 10 MEQ/100 ML IV.SOLN. 100 MEQ IV BOLUS ×2 (08:50→10:01)
[2020-04-16] MEDS: Gabapentin 300 MG Capsule PO ×3 (08:52→16:12)
[2020-04-16] MEDS: Potassium Chloride Oral Tablet 20 MEQ 40 MEQ PO (08:52)
[2020-04-16] MEDS: busPIRone 5 MG Tablet 10 MG PO (08:55)
[2020-04-16] MEDS: amLODIPine 5 MG Tablet PO (08:55)
[2020-04-16] MEDS: Carvedilol 12.5 MG Tablet PO ×2 (08:56→20:13)
[2020-04-16] MEDS: buPROPion 100 MG Tablet PO (08:57)
--- NOTE | 2020-04-16 09:18 | CASEMGMT ---
Social Work Note Per admissions gate attendant questions, pt has completed HCPOA and LW and provided documents to [facility]. SW reviewed chart, copies found on pt's e-chart. SW printed off copies and placed on pt's chart. Melonie Wilson MSW, [employer]
[2020-04-16] MEDS: Fluticasone 0.05% 1 SPRAY NASAL.SRY NASAL ×2 (10:05→20:14)
[2020-04-16] MEDS: Lidocaine 5% Patch 2 PATCH TOPICAL (11:03)
[2020-04-16] MEDS: Loratadine 10 MG Tablet PO (11:04)
[2020-04-16] MEDS: HYDROcodone Bitartrate/Apap 5/325 Tablet PO (13:33)
--- NOTE | 2020-04-16 14:51 | CASEMGMT ---
TRISTIN CM in to complete CABRERA form at this time. RN SILVINO explained CABRERA form to patient, patient voiced understanding. Patient signed CABRERA form and placed in chart. Copy of signed form provided to patient. Patient had no further questions or concerns.
--- NOTE | 2020-04-16 15:07 | RAD_ITS ---
STUDY: X-RAY - RIGHT FOOT CLINICAL: Male, 59 years old. right foot pain TECHNIQUE: 3 view(s) of the foot. COMPARISON: None. FINDINGS: Normal talus, calcaneus, and tarsal bones. Normal visualized subtalar, talonavicular, calcaneocuboid, tarsal and tarsometatarsal articulations. Normal metatarsi. There is degenerative arthrosis of the metatarsophalangeal joint of the hallux with a hallux valgus deformity. Normal tibial and fibular sesamoid bones. Normal interphalangeal joint of the great toe. Normal phalanges of the great toe. Normal second through fifth metatarsophalangeal joints. Normal interphalangeal joints and phalanges of the lesser toes. The soft tissue structures are unremarkable. RAD/Foot min 3 Views IMPRESSION: Hallux valgus deformity with first metatarsophalangeal joint arthrosis. Electronically Signed: Shahriar Stock MD at 15:39 EST Tel , Service support ,
[2020-04-16 16:06] LABS: Uric Acid 8.6 mg/dL (3.5-7.2)
--- NOTE | 2020-04-16 16:08 | PN_ITS ---
<Jose Maria Osborn - Last Filed: 04/16/20 16:08> Patient Problems: Active and Suspected Problems (Last Reviewed 04/15/20 @ 15:[address] Mercy Matthew DO) Intractable low back pain (Acute) Morbid obesity with BMI of 50.0-59.9, adult (Acute) Reason for Visit: Intractable back pain Subjective: Patient is a 59-year-old male with intractable back pain. Patient reports no resolution in symptoms, patient states this is his usual. Objective: Clinical Impression(s) from Imaging Studies Lumbar Spine X-Ray 04/15/20 14:20 IMPRESSION: Degenerative changes of the spine, as detailed above. 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 Electronically Signed: Shahriar Stock MD at 15:39 EST Tel , Service support , Microbiology 04/15/20 17:00 Urine, Midstream Urine Culture - Preliminary GPC Poss Enterococcus sp Vitals/I&O's: Vital Signs Temp Pulse Resp BP Pulse Ox 98.1 F 83 20 H 111/61 95 04/16/20 13:27 04/16/20 13:27 04/16/20 13:27 04/16/20 13:27 04/16/20 13:27 Oxygen Flow Rate (L/min) 3 Oxygen Delivery Method Nasal Cannula Weight: 379 lb 9.612 oz Body Mass Index (BMI) 54.4 Intake and Output for Last 24 Hours 04/14/20 04/15/20 04/16/20 23:59 23:59 23:59 Intake Total 800 / 800 700 / 700 Output Total 150 / 1000 1200 / 1200 Balance 650 / -200 -500 / -500 General: Alert, Oriented x3, Cooperative HEENT: Atraumatic, PERRLA, EOMI, Normocephalic Neck: Supple, No JVD, Negative Carotid Bruits Lungs: Diminished, Wheezes Cardiovascular: Regular rate, No murmurs Abdomen: Bowel Sounds Present, Soft, Non Tender Extremities: No edema, Capillary Refill Less than 3 Seconds Skin: No rashes, No breakdown Musculoskeletal: No Tenderness to Palpation of Joints or Extremities, Arthritic Changes, Tenderness Neurological: Cranial nerves II-XII grossly intact Psych/Mental Status: Normal Affect, Appropriate, Depressed Microbiology Past 72 Hours 04/15/20 17:00 Urine, Midstream Urine Culture - Preliminary GPC Poss Enterococcus sp Laboratory Results 04/15/20 16:07: WBC 7.2, RBC 4.42 L, Hgb 12.9 L, Hct 38.4 L, MCV 86.9, MCH 29.2, MCHC 33.6, RDW Std Deviation 42.7, RDW Coeff of Jordin 13.5, Plt Count 192, MPV 10.9, Immature Gran % (Auto) 0.300, Neut % (Auto) 72.8 H, Lymph % (Auto) 18.4 L, [place] % (Auto) 6.8, Eos % (Auto) 1.4, Baso % (Auto) 0.3, Absolute Neuts (auto) 5.2, Absolute Lymphs (auto) 1.32, Nucleated RBC % 0 04/15/20 16:07: Sodium 138, Potassium 2.8 L, Chloride 98, Carbon Dioxide 33.0 H, Anion Gap 7, BUN 12, Creatinine 0.92, Estim Creat Clear Calc 88.16, Est GFR (MDRD) Af Amer 108, Est GFR (MDRD) Non-Af 89, BUN/Creatinine Ratio 13.0, Glucose 102, Calcium 8.9 04/15/20 17:00: Urine Color Yellow, Urine Clarity Clear, Urine pH 7.0, Ur Specific [place] 1.010, Urine Protein 15 H, Urine Glucose (UA) Normal, Urine Ketones Negative, Urine Occult Blood Negative, Urine Nitrite Negative, Urine Bilirubin Negative, Urine Urobilinogen 1 H, Ur Leukocyte Esterase 25 H 04/16/20 05:10: WBC 5.5, RBC 4.08 L, Hgb 11.8 L, Hct 35.9 L, MCV 88.0, MCH 28.9, MCHC 32.9, RDW Std Deviation 43.5, RDW Coeff of Jordin 13.5, Plt Count 175, MPV 11.2, Immature Gran % (Auto) 0.500, Neut % (Auto) 67.4, Lymph % (Auto) 22.3, [place] % (Auto) 7.4, Eos % (Auto) 2.2, Baso % (Auto) 0.2, Absolute Neuts (auto) 3.7, Absolute Lymphs (auto) 1.23, Nucleated RBC % 0 04/16/20 05:10: Sodium 137, Potassium 2.7 L*, Chloride 98, Carbon Dioxide 35.0 H , Anion Gap 4 L, BUN 11, Creatinine 0.91, Estim Creat Clear Calc 89.13, Est GFR (MDRD) Af Amer 109, Est GFR (MDRD) Non-Af 90, BUN/Creatinine Ratio 12.1, Glucose 118 H, Calcium 8.6, Total Bilirubin 1.30 H, AST 39 H, ALT 43, Alkaline Phosphatase 65, Total Protein 6.3 L, Albumin 2.8 L, Globulin 3.5, Albumin/Globulin Ratio 0.8 L 04/16/20 05:10: Magnesium 2.0 04/16/20 05:10: Uric Acid 8.6 H Current Medications Acetaminophen (Acetaminophen 325 Mg Tablet) 650 mg PO Q6H PRN PRN PRN Reason: Pain Score 1-10/Temp > 100.7 F Last Admin: 04/15/20 17:11 Dose: 650 mg Documented by: Hydrocodone Bitart/Acetaminophen (Hydrocodone Bitartrate/Apap 5/325 Tablet) 1 tablet PO Q6H PRN PRN PRN Reason: Pain Score 1-5 Last Admin: 04/16/20 13:33 Dose: 1 tablet Documented by: Al Hydroxide/Mg Hydroxide (Mag Hydrox/Al Hydrox/Simeth 30 Ml Udc) 30 ml PO Q6H PRN PRN PRN Reason: Gastric Burning Albuterol Sulfate (Albuterol 2.5 Mg/3 Ml Vial.Neb.) 2.5 mg INHALATION Q8H PRN PRN Reason: SOB &/OR WHEEZING Albuterol/Ipratropium (Ipratropium/Albuterol Sulfate 3 Ml Ampul.Neb) 3 ml INHALATION Q6HWA.RT [facility]IL[facility] Last Admin: 04/16/20 08:21 Dose: 3 ml Documented by: Amlodipine Besylate (Amlodipine 5 Mg Tablet) 5 mg PO DAILY LIL[facility] Last Admin: 04/16/20 08:55 Dose: 5 mg Documented by: Bupropion HCl (Bupropion 100 Mg Tablet) 100 mg PO BID [facility] Last Admin: 04/16/20 08:57 Dose: 100 mg Documented by: Buspirone HCl (Buspirone 5 Mg Tablet) 10 mg PO BID [facility] Last Admin: 04/16/20 08:55 Dose: 10 mg Documented by: Carvedilol (Carvedilol 12.5 Mg Tablet) 12.5 mg PO BID [facility] Last Admin: 04/16/20 08:56 Dose: 12.5 mg Documented by: Enoxaparin Sodium (Enoxaparin 40 Mg/0.4 Ml Syringe) 40 mg SC BID [facility] Last Admin: 04/16/20 11:02 Dose: Not Given Documented by: Fluticasone Propionate (Fluticasone 0.05% 1 Byron Nasal.Sry) 1 spray NASAL BID [facility] Last Admin: 04/16/20 10:05 Dose: 1 spray Documented by: Furosemide (Furosemide 40 Mg Tablet) 40 mg PO DAILY PRN PRN PRN Reason: SHORTNESS OF BREATH Gabapentin (Gabapentin 300 Mg Capsule) 300 mg PO TIDCM [facility] Last Admin: 04/16/20 11:04 Dose: 300 mg Documented by: Hydromorphone HCl (Hydromorphone 0.5 Mg/0.5 Ml Syringe) 0.5 mg IV Q4H PRN PRN PRN Reason: Pain Score 6-10 Last Admin: 04/16/20 08:47 Dose: 0.5 mg Documented by: Lidocaine (Lidocaine 5% Patch) 2 patch TOPICAL DAILY [facility]; Protocol Last Admin: 04/16/20 11:03 Dose: 2 patch Documented by: Lidocaine (Lidocaine 5% Patch) 1 patch TOPICAL DAILY [facility]; Protocol Loratadine (Loratadine 10 Mg Tablet) 10 mg PO DAILY [facility] Last Admin: 04/16/20 11:04 Dose: 10 mg Documented by: Nutritional Formula (Lactose Free) (Ensure Enlive 120 Ml Liquid) 120 ml PO 4X/DAY [facility] Last Admin: 04/16/20 10:05 Dose: 120 ml Documented by: Ondansetron HCl (Ondansetron 4 Mg/2 Ml Vial) 4 mg IV Q8H PRN PRN PRN Reason: NAUSEA/VOMITING Oxycodone HCl (Oxycodone 5 Mg Tablet) 5 mg PO Q4H PRN PRN PRN Reason: Pain Score 4-5 Last Admin: 04/16/20 08:46 Dose: 5 mg Documented by: Prednisone (Prednisone 20 Mg Tablet) 40 mg PO DAILY@0800 [facility] Last Admin: 04/16/20 08:41 Dose: Not Given Documented by: Senna/Docusate Sodium (Senna/Docusate Sodium 1 Tablet) 2 tablet PO BID PRN PRN PRN Reason: Constipation Sodium Chloride (0.9% Saline Lock 10 Ml Syringe) 10 - 40 ml IV UD PRN PRN Reason: SALINE FLUSH Last Admin: 04/16/20 08:53 Dose: 10 ml Documented by: Tizanidine HCl (Tizanidine Hcl 2 Mg Tablet) 4 mg PO Q8H PRN PRN PRN Reason: SPASMS Last Admin: 04/16/20 13:34 Dose: 4 mg Documented by: STROKE Vital Signs/Narrative: Vital Signs Temp Pulse Resp BP Pulse Ox 04/16/20 13:27 98.1 F 83 20 H 111/61 95 Medical Necessity - Tobacco Use Smoking Status: Former smoker Tobacco Use: Chew Assessment/Plan All Active Problems (Last Reviewed 04/15/20 @ 15:[address] Mercy Matthew, DO) Intractable low back pain (Acute) Morbid obesity with BMI of 50.0-59.9, adult (Acute) Dyspnea (Acute) Intermittent palpitations (Acute) Acute exacerbation of chronic obstructive pulmonary disease (Resolved) Acute respiratory failure (Resolved) Dizziness (Resolved) Hypokalemia (Resolved) Hypokalemia (Resolved) Palpitations (Resolved) Mr. Deras is a 59 year old morbidly obese male with a past medical history of chronic low back pain, bipolar disorder, COPD, fibromyalgia, GERD, hyperlipidemia, insulin resistance, obstructive sleep apnea, and morbid obesity, sarcoidosis, secondary pulmonary hypertension, and tobacco abuse who was admit constance to the hospital for intractable back pain. Patient appears to have low self efficacy and is frustrated with lack of relief from his back pain. Consultation with Dr. Pinto conducted; Dr. Pinto agrees with our current pain management of patient while admitted. Does not believe there is anything that can be done by the hospital staff. Dr. Pinto will attempt lumbar injection tomorrow to relieve patient's pain. 1) intractable lower back pain on chronic lower back pain Assessment - Dr. Pinto in concurrence with current pain management regimen while admitted - Patient appears uncomfortable on physical examination, but it appears pain is tolerable Plan - Dr. Pinto will attempt a steroid injection tomorrow - Anticipate discharge tomorrow pending injection 2) Gout Right ankle Assessment - Prednisone taper initiated yesterday.\ - Right ankle it does not appear as inflamed, is still edematous - Dryness and cracking on feet/ankles bilaterally - Swelling of the right ankle Plan - Serum uric acid level pending - X-ray of the right foot ordered DVT prophylaxis: SCDs Patient seen by Jose Maria Osborn PA-C, under the supervision of Dr. Hicks. <Aga Hicks - Last Filed: 04/16/20 20:43> Vitals/I&O's: Vital Signs Temp Pulse Resp BP Pulse Ox 97.8 F 71 18 109/63 95 04/16/20 16:21 04/16/20 16:21 04/16/20 16:21 04/16/20 16:21 04/16/20 16:21 Oxygen Flow Rate (L/min) 3 Oxygen Delivery Method Nasal Cannula Weight: 379 lb 9.612 oz Body Mass Index (BMI) 54.4 Intake and Output for Last 24 Hours 04/14/20 04/15/20 04/16/20 23:59 23:59 23:59 Intake Total 800 / 800 1600 / 1600 Output Total 150 / 1000 1450 / 1450 Balance 650 / -200 150 / 150 Microbiology Past 72 Hours 04/15/20 17:00 Urine, Midstream Urine Culture - Preliminary GPC Poss Enterococcus sp Laboratory Results 04/16/20 05:10: WBC 5.5, RBC 4.08 L, Hgb 11.8 L, Hct 35.9 L, MCV 88.0, MCH 28.9, MCHC 32.9, RDW Std Deviation 43.5, RDW Coeff of Jordin 13.5, Plt Count 175, MPV 11.2, Immature Gran % (Auto) 0.500, Neut % (Auto) 67.4, Lymph % (Auto) 22.3, [place] % (Auto) 7.4, Eos % (Auto) 2.2, Baso % (Auto) 0.2, Absolute Neuts (auto) 3.7, Absolute Lymphs (auto) 1.23, Nucleated RBC % 0 04/16/20 05:10: Sodium 137, Potassium 2.7 L*, Chloride 98, Carbon Dioxide 35.0 H , Anion Gap 4 L, BUN 11, Creatinine 0.91, Estim Creat Clear Calc 89.13, Est GFR (MDRD) Af Amer 109, Est GFR (MDRD) Non-Af 90, BUN/Creatinine Ratio 12.1, Glucose 118 H, Calcium 8.6, Total Bilirubin 1.30 H, AST 39 H, ALT 43, Alkaline Phosphatase 65, Total Protein 6.3 L, Albumin 2.8 L, Globulin 3.5, Albumin/Globulin Ratio 0.8 L 04/16/20 05:10: Magnesium 2.0 04/16/20 05:10: Uric Acid 8.6 H Current Medications Acetaminophen (Acetaminophen 325 Mg Tablet) 650 mg PO Q6H PRN PRN PRN Reason: Pain Score 1-10/Temp > 100.7 F Last Admin: 04/15/20 17:11 Dose: 650 mg Documented by: Hydrocodone Bitart/Acetaminophen (Hydrocodone Bitartrate/Apap 5/325 Tablet) 1 tablet PO Q6H PRN PRN PRN Reason: Pain Score 1-5 Last Admin: 04/16/20 13:33 Dose: 1 tablet Documented by: Al Hydroxide/Mg Hydroxide (Mag Hydrox/Al Hydrox/Simeth 30 Ml Udc) 30 ml PO Q6H PRN PRN PRN Reason: Gastric Burning Albuterol Sulfate (Albuterol 2.5 Mg/3 Ml Vial.Neb.) 2.5 mg INHALATION Q8H PRN PRN Reason: SOB &/OR WHEEZING Albuterol/Ipratropium (Ipratropium/Albuterol Sulfate 3 Ml Ampul.Neb) 3 ml INHALATION Q6HWA.RT [facility] Last Admin: 04/16/20 08:21 Dose: 3 ml Documented by: Amlodipine Besylate (Amlodipine 5 Mg Tablet) 5 mg PO DAILY [facility] Last Admin: 04/16/20 08:55 Dose: 5 mg Documented by: Bupropion HCl (Bupropion 100 Mg Tablet) 100 mg PO BID [facility] Last Admin: 04/16/20 20:15 Dose: Not Given Documented by: Buspirone HCl (Buspirone 5 Mg Tablet) 10 mg PO BID [facility] Last Admin: 04/16/20 20:18 Dose: Not Given Documented by: Carvedilol (Carvedilol 12.5 Mg Tablet) 12.5 mg PO BID [facility] Last Admin: 04/16/20 20:13 Dose: 12.5 mg Documented by: Enoxaparin Sodium (Enoxaparin 40 Mg/0.4 Ml Syringe) 40 mg SC BID [facility] Last Admin: 04/16/20 20:15 Dose: Not Given Documented by: Fluticasone Propionate (Fluticasone 0.05% 1 [place] Nasal.Sry) 1 spray NASAL BID [facility] Last Admin: 04/16/20 20:14 Dose: 1 spray Documented by: Furosemide (Furosemide 40 Mg Tablet) 40 mg PO DAILY PRN PRN PRN Reason: SHORTNESS OF BREATH Gabapentin (Gabapentin 300 Mg Capsule) 300 mg PO TIDCM [facility] Last Admin: 04/16/20 16:12 Dose: 300 mg Documented by: Hydromorphone HCl (Hydromorphone 0.5 Mg/0.5 Ml Syringe) 0.5 mg IV Q4H PRN PRN PRN Reason: Pain Score 6-10 Last Admin: 04/16/20 19:59 Dose: 0.5 mg Documented by: Lidocaine (Lidocaine 5% Patch) 2 patch TOPICAL DAILY [facility]; Protocol Last Admin: 04/16/20 11:03 Dose: 2 patch Documented by: Lidocaine (Lidocaine 5% Patch) 1 patch TOPICAL DAILY [facility]; Protocol Loratadine (Loratadine 10 Mg Tablet) 10 mg PO DAILY [facility] Last Admin: 04/16/20 11:04 Dose: 10 mg Documented by: Nutritional Formula (Lactose Free) (Ensure Enlive 120 Ml Liquid) 120 ml PO 4X/DAY [facility] Last Admin: 04/16/20 20:16 Dose: 120 ml Documented by: Ondansetron HCl (Ondansetron 4 Mg/2 Ml Vial) 4 mg IV Q8H PRN PRN PRN Reason: NAUSEA/VOMITING Oxycodone HCl (Oxycodone 5 Mg Tablet) 5 mg PO Q4H PRN PRN PRN Reason: Pain Score 4-5 Last Admin: 04/16/20 20:10 Dose: 5 mg Documented by: Prednisone (Prednisone 20 Mg Tablet) 40 mg PO DAILY@0800 [facility] Last Admin: 04/16/20 08:41 Dose: Not Given Documented by: Senna/Docusate Sodium (Senna/Docusate Sodium 1 Tablet) 2 tablet PO BID PRN PRN PRN Reason: Constipation Sodium Chloride (0.9% Saline Lock 10 Ml Syringe) 10 - 40 ml IV UD PRN PRN Reason: SALINE FLUSH Last Admin: 04/16/20 20:00 Dose: 10 ml Documented by: Tizanidine HCl (Tizanidine Hcl 2 Mg Tablet) 4 mg PO Q8H PRN PRN PRN Reason: SPASMS Last Admin: 04/16/20 13:34 Dose: 4 mg Documented by: STROKE Vital Signs/Narrative: Vital Signs Temp Pulse Resp BP Pulse Ox 04/16/20 16:21 97.8 F 71 18 109/63 95 Assessment/Plan Patient seen by Jose Maria Osborn PA-C under my supervision Patient seen and examined. He was admitted with a complaint of intractable back pain. He still complains of his back pain today. He also complains of right foot pain, and thinks it is due to gout; he has never had gout or been diagnosed with it. Review of systems otherwise negative. O/E; Vital Signs Temp Pulse Resp BP Pulse Ox 97.8 F 71 18 109/63 95 04/16/20 16:21 04/16/20 16:21 04/16/20 16:21 04/16/20 16:21 04/16/20 16:21 General: Alert, Oriented x3, Cooperative, super morbid obesity HEENT: Atraumatic, PERRLA, EOMI, Normocephalic Neck: Supple, No JVD, Negative Carotid Bruits Lungs: Diminished, Wheezes Cardiovascular: Regular rate, No murmurs Abdomen: Bowel Sounds Present, Soft, Non Tender Extremities: No edema, Capillary Refill Less than 3 Seconds Skin: No rashes, No breakdown Musculoskeletal: has mild tenderness on palpation of right ankle. no visible swelling of ankle. Neurological: Cranial nerves II-XII grossly intact Psych/Mental Status: Normal Affect, Appropriate Diagnostic Data Lumbar Spine X-Ray 04/15/20 14:20 IMPRESSION: Degenerative changes of the spine, as detailed above. 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 Electronically Signed: Shahriar Stock MD at 15:39 EST Tel , Service support , Pain management on board; Dr Pinto to do a pain shot tomorrow.Xray of the foot done showed no evidence of any infection or gout, but showed hallux valgus deformity with first metarsophalangeal joint arthrosis. Uric acid is also elevated at 8.6; will give a dose of colchicine and continue on steroid taper. Patient has hypokalemia, with potassium being 2.7. Will replace potassium aggressively. PT/OT on board. Fall precautions. Rest as per Jose Maria Osborn PA-C under my supervision OBSV E&M: [id number] Initial observation care L2
[2020-04-17 04:04] VITALS: BP 132/66; PULSE 72; RESP 18; TEMP 36.6; O2SAT 100
[2020-04-17] MEDS: 0.9% Saline Lock 10 ML Syringe IV ×3 (05:26→10:27)
[2020-04-17] MEDS: HYDROmorphone 0.5 MG/0.5 ML SYRINGE IV ×2 (05:26→10:27)
[2020-04-17] MEDS: Fluticasone 0.05% 1 SPRAY NASAL.SRY NASAL ×2 (05:26→12:51)
--- NOTE | 2020-04-17 06:00 | EKG12_ITS ---
Test Reason : PRE-OP Blood Pressure : / mmHG Vent. Rate : 079 BPM Atrial Rate : 079 BPM P-R Int : 154 ms QRS Dur : 088 ms QT Int : 380 ms P-R-T Axes : 028 045 033 degrees QTc Int : 435 ms Normal sinus rhythm Nonspecific ST and T wave abnormality Abnormal ECG When compared with ECG of 28-OCT-2018 20:39, Inverted T waves have replaced nonspecific T wave abnormality in Anterior leads Confirmed by ROLF BERTRAND, JEFF ([id number]), assistant editor AMMY BRIGHT ([id number]) on 04/18/2020 11:09:18 AM Referred By: VIDYA Confirmed By:JEFF BANSAL MD
[2020-04-17 06:30] LABS: Absolute Lymphocyte Count 1.06 X10^3/uL (0.83-4.51); Absolute Neutrophil Count 3.3 X10^3/uL (2.0-7.7); Basophil# 0.02 X10^3/uL; Basophil% 0.4 % (0-1); Eosinophil# 0.12 X10^3/uL; Eosinophils% 2.4 % (0-5); Hematocrit 36.2 % (40-54); Lymphocyte # 1.06 X10^3/ul (4.0); Lymphocyte % 21.6 % (19-41); Mean Corp Hgb Conc 33.1 g/dL (32-36); Mean Corpuscular Hgb 29.6 pg (27.0-32.0); Mean Corpuscular Volume 89.2 fL (80-94); Mean Platelet Vol. 11.1 fl (6.2-12.0); Monocyte# 0.39 X10^3/uL; NRBC Flagged by Analyzer 0 % (0-5); Neutrophil # 3.29 X10^3/uL (2.7-7.7); Neutrophil % 67.2 % (47-70); Platelet Count 174 K/mm3 (150-450); RBC Distribution Width CV 13.5 % (11.6-14.6); Red Blood Count 4.06 M/mm3 (4.6-6.2); White Blood Count 4.9 K/mm3 (4.4-11.0)
[2020-04-17 07:17] LABS: Anion Gap 4 (5-15); BUN 11 mg/dL (7-18); BUN/Creat Ratio 12.6 RATIO (10-20); Calcium,Total 8.8 mg/dL (8.5-10.1); Chloride 100 mmol/L (98-107); Creatinine, Serum 0.87 mg/dL (0.70-1.30); EST Glomerular Filtration Rate 95 mL/min (>60); Est Glom Filt Rate - Afr Amer 115 mL/min (>60); Estimated Creatinine Clearance 93.23 ml/min; Glucose 115 mg/dL (74-106); Potassium 2.8 mmol/L (3.5-5.1); Sodium Level 139 mmol/L (136-145)
[2020-04-17 07:30] VITALS: O2SAT 94
[2020-04-17] MEDS: Potassium Chloride 10mEq/100mL 10 MEQ/100 ML IV.SOLN. 100 MEQ IV BOLUS (08:30)
--- NOTE | 2020-04-17 09:51 | NURSING ---
LATE ENTRY - 829 - PT ORDERED IV POTASSIUM. PT STATES ALSO RECEIVED IT 04/16. C/O BURNING. ASKED THIS NURSE TO RUN IT SLOWER LIKE THE NURSE YESTERDAY
--- NOTE | 2020-04-17 09:59 | DCINST_ITS ---
- Discharge Diagnoses Current Active Problems: Current Active and Chronic Problems (Last Reviewed 04/15/20 @ 15:[address] Mercy Matthew DO) Intractable low back pain (Acute) Morbid obesity with BMI of 50.0-59.9, adult (Acute) You will use the following diet at home:: No restrictions Your food should be the consistency of: Regular Your liquids should be the consistency of: Regular/Thin Discharge Activity: Return to Normal Activity Allergies/Adverse Reactions: Allergies No Known Allergies Allergy (Verified 11/09/19 13:41) Medications to take at Discharge Budesonide/Formoterol 160/4.5 [Symbicort 160/4.5 Mcg Inhaler (SP)] 2 puff INHALATION BID 02/27/16 fluticasone propionate 50 mcg/actuation nasal spray,suspension 1 puff INTRANASAL BID 30 Days #16 05/20/17 ipratropium bromide 0.03 % nasal spray 2 spray INTRANASAL BID 12/05/18 bupropion HCl 100 mg tablet 100 mg PO BID tab 11/09/19 buspirone 10 mg tablet 10 mg PO BID 11/09/19 tizanidine 4 mg tablet 8 mg PO QHS 30 Days #60 tab 11/09/19 carvedilol 12.5 mg tablet 12.5 mg PO BID #180 tab 11/17/19 amlodipine 5 mg tablet 5 mg PO DAILY #90 tab 01/25/20 Albuterol Sulfate [Albuterol Sulfate HFA] 1 - 2 puff INHALATION Q4H PRN PRN 04/15/20 Hydrocodone/Acetaminophen [Hydrocodone-Acetamin 10-325 mg] 1 ea PO TID PRN PRN 04/15/20 Loratadine 10 mg PO DAILY 04/15/20 Metformin HCl 500 mg PO BID 04/15/20 Torsemide 20 mg PO DAILY PRN PRN 04/15/20 predniSONE tablet See Taper PO DAILY #15 tab 04/17/20 The following prescriptions were given: predniSONE tablet See Taper PO DAILY #15 tab Prescription Printed Primary Care Physician: Gabrielle Galeana DO [Primary Care Provider] - Please follow up with your Primary Care Physician in: Within the next week Test Results: Test results from this visit will be discussed in further detail at your follow- up appointment, if applicable. Please Follow Up With: Dr. Pinto When: Within the next two weeks Proposed Discharge Date: 04/17/20
[2020-04-17 11:06] VITALS: BP 132/66; PULSE 72; RESP 18; TEMP 36.6; BMI 54.4
[2020-04-17] MEDS: Potassium Chloride 10mEq/100mL 10 MEQ/100 ML IV.SOLN. IV BOLUS ×3 (11:36→15:11)
--- NOTE | 2020-04-17 11:57 | DS.PCM_ITS ---
<Jose Maria Osborn - Last Filed: 04/17/20 11:57> Discharge Date and Diagnosis - Problem List Patient Problems: Active and Suspected Problems (Last Reviewed 04/15/20 @ 15:[address] Mercy Matthew DO) Intractable low back pain (Acute) Morbid obesity with BMI of 50.0-59.9, adult (Acute) Date of Admission: 04/15/20 Date of Discharge: 04/17/20 - Primary Discharge Diagnosis Acute Problems: Active Problems (Last Reviewed 04/15/20 @ 15:[address] Mercy Matthew DO) Intractable low back pain (Acute) Morbid obesity with BMI of 50.0-59.9, adult (Acute) - Secondary Discharge Diagnosis Chronic Problems: Chronic Problems (Last Reviewed 04/15/20 @ 15:[address] Mercy Matthew DO) Hypokalemia (Chronic) Essential (primary) hypertension (Chronic) Hyperlipidemia (Chronic) Secondary pulmonary arterial hypertension (Chronic) Hospital Course and Treatment Imaging Results: 04/17/20 12:00 OR-Steroi/Epid Inj/Lum Sac/1st [RAD] Urgent Spine 1 View Any Level [RAD] Urgent Clinical Impression(s) from Imaging Studies Lumbar Spine X-Ray 04/15/20 14:20 IMPRESSION: Degenerative changes of the spine, as detailed above. 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 Electronically Signed: Shahriar Stock MD at 15:39 EST Tel , Service support , Microbiology 04/15/20 17:00 Urine, Midstream Urine Culture - Final Enterococcus faecalis Operations: None Procedures: - - Steroid injection Summary of Care Provided: Mr. Deras is a 59 year old morbidly obese male with a past medical history of chronic low back pain, bipolar disorder, COPD, fibromyalgia, GERD, hyperlipidemia, insulin resistance, obstructive sleep apnea, and morbid obesity, sarcoidosis, secondary pulmonary hypertension, and tobacco abuse who was admitted to the hospital for intractable back pain. Patient appears to have low self efficacy and is frustrated with lack of relief from his back pain. Patient was visited by his toy painter, Dr. Pinto, while in the hospital. Dr. Pinto concurred with our pain management for the patient while he was admitted. Dr. Pinto was going to attempt a steroid injection today and then recommended discharge. Further pain management to be completed on an outpatient basis. 1) Intractable lower back pain on chronic lower back pain Assessment - Outpatient outpatient toy painter consulted; Dr. Pinto - Dr. Pinto in concurrence with current pain management regimen while admitted Plan - Discharge today - Follow-up with Dr. Pinto within the next week 2) Gout Right ankle Assessment - Uric acid elevated at 8.6 - Right ankle does not appear as inflamed - Right ankle and foot swollen - Dryness and cracking on feet/ankles bilaterally - Patient received 1 dose of colchicine while admitted Plan - Steroid taper continued on discharge - Follow-up with primary care provider within the next week DVT prophylaxis: SCDs Patient seen by Jose Maria Osborn PA-C, under the supervision of Dr. Hicks. Patient Problems: Active and Suspected Problems (Last Reviewed 04/15/20 @ 15:[address] Mercy Matthew, DO) Intractable low back pain (Acute) Morbid obesity with BMI of 50.0-59.9, adult (Acute) Subjective: Patient is a 59-year-old male with intractable back pain. Patient reports no resolution in symptoms, patient states this is his usual. Objective: Clinical Impression(s) from Imaging Studies Lumbar Spine X-Ray 04/15/20 14:20 IMPRESSION: Degenerative changes of the spine, as detailed above. 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 Electronically Signed: Shahriar Stock MD at 15:39 EST Tel , Service support , Microbiology Past 72 Hours 04/15/20 17:00 Urine Culture - Final Urine, Midstream Enterococcus faecalis Laboratory Tests Past 24 Hrs 04/16/20 04/17/20 04/17/20 05:10 06:10 06:10 WBC 4.9 RBC 4.06 L Hgb 12.0 L Hct 36.2 L MCV 89.2 MCH 29.6 MCHC 33.1 RDW Std Deviation 44.0 H RDW Coeff of Jordin 13.5 Plt Count 174 MPV 11.1 Immature Gran % (Auto) 0.400 Neut % (Auto) 67.2 Lymph % (Auto) 21.6 Hitchcock % (Auto) 8.0 Eos % (Auto) 2.4 Baso % (Auto) 0.4 Absolute Neuts (auto) 3.3 Absolute Lymphs (auto) 1.06 Nucleated RBC % 0 Sodium 139 Potassium 2.8 L Chloride 100 Carbon Dioxide 35.0 H Anion Gap 4 L BUN 11 Creatinine 0.87 Estim Creat Clear Calc 93.23 Est GFR (MDRD) Af Amer 115 Est GFR (MDRD) Non-Af 95 BUN/Creatinine Ratio 12.6 Glucose 115 H Uric Acid 8.6 H Calcium 8.8 - Physical Exam Vitals/I&O's: Vital Signs Temp Pulse Resp BP Pulse Ox 97.9 F 72 18 132/66 H 94 04/17/20 11:06 04/17/20 11:06 04/17/20 11:06 04/17/20 11:06 04/17/20 07:30 Oxygen Flow Rate (L/min) 2 Oxygen Delivery Method Nasal Cannula Weight: 379 lb 9.612 oz Body Mass Index (BMI) 54.4 Intake and Output for Last 24 Hours 04/15/20 04/16/20 04/17/20 23:59 23:59 23:59 Intake Total 800 / 800 1600 / 2200 700 / 700 Output Total 150 / 1000 1450 / 1450 750 / 750 Balance 650 / -200 150 / 750 -50 / -50 General: Alert, Oriented x3, Cooperative HEENT: Atraumatic, PERRLA, EOMI, Normocephalic Neck: Supple, No JVD, Negative Carotid Bruits Lungs: Clear to auscultation, Normal air movement Cardiovascular: Regular rate, No murmurs Abdomen: Bowel Sounds Present, Soft, Non Tender Extremities: - - Dryness to both ankles and feet bilaterally. Poor foot hygiene bilaterally Skin: No rashes, No breakdown Musculoskeletal: No Tenderness to Palpation of Joints or Extremities Neurological: Cranial nerves II-XII grossly intact Psych/Mental Status: Normal Affect, Appropriate Microbiology Past 72 Hours 04/15/20 17:00 Urine, Midstream Urine Culture - Final Enterococcus faecalis Laboratory Results 04/16/20 05:10: Uric Acid 8.6 H 04/17/20 06:10: WBC 4.9, RBC 4.06 L, Hgb 12.0 L, Hct 36.2 L, MCV 89.2, MCH 29.6, MCHC 33.1, RDW Std Deviation 44.0 H, RDW Coeff of Jordin 13.5, Plt Count 174, MPV 11.1, Immature Gran % (Auto) 0.400, Neut % (Auto) 67.2, Lymph % (Auto) 21.6, Hitchcock % (Auto) 8.0, Eos % (Auto) 2.4, Baso % (Auto) 0.4, Absolute Neuts (auto) 3.3, Absolute Lymphs (auto) 1.06, Nucleated RBC % 0 04/17/20 06:10: Sodium 139, Potassium 2.8 L, Chloride 100, Carbon Dioxide 35.0 H , Anion Gap 4 L, BUN 11, Creatinine 0.87, Estim Creat Clear Calc 93.23, Est GFR (MDRD) Af Amer 115, Est GFR (MDRD) Non-Af 95, BUN/Creatinine Ratio 12.6, Glucose 115 H, Calcium 8.8 Current Medications Acetaminophen (Acetaminophen 325 Mg Tablet) 650 mg PO Q6H PRN PRN PRN Reason: Pain Score 1-10/Temp > 100.7 F Last Admin: 04/15/20 17:11 Dose: 650 mg Documented by: Hydrocodone Bitart/Acetaminophen (Hydrocodone Bitartrate/Apap 5/325 Tablet) 1 tablet PO Q6H PRN PRN PRN Reason: Pain Score 1-5 Last Admin: 04/16/20 13:33 Dose: 1 tablet Documented by: Al Hydroxide/Mg Hydroxide (Mag Hydrox/Al Hydrox/Simeth 30 Ml Udc) 30 ml PO Q6H PRN PRN PRN Reason: Gastric Burning Albuterol Sulfate (Albuterol 2.5 Mg/3 Ml Vial.Neb.) 2.5 mg INHALATION Q8H PRN PRN Reason: SOB &/OR WHEEZING Amlodipine Besylate (Amlodipine 5 Mg Tablet) 5 mg PO DAILY [facility] Last Admin: 04/17/20 11:11 Dose: Not Given Documented by: Bupropion HCl (Bupropion 100 Mg Tablet) 100 mg PO BID [facility] Last Admin: 04/17/20 11:11 Dose: Not Given Documented by: Buspirone HCl (Buspirone 5 Mg Tablet) 10 mg PO BID [facility] Last Admin: 04/17/20 11:10 Dose: Not Given Documented by: Carvedilol (Carvedilol 12.5 Mg Tablet) 12.5 mg PO BID [facility] Last Admin: 04/17/20 11:11 Dose: Not Given Documented by: Enoxaparin Sodium (Enoxaparin 40 Mg/0.4 Ml Syringe) 40 mg SC BID [facility] Last Admin: 04/17/20 07:55 Dose: Not Given Documented by: Fluticasone Propionate (Fluticasone 0.05% 1 [place] Nasal.Sry) 1 spray NASAL BID [facility] Last Admin: 04/17/20 05:26 Dose: 1 spray Documented by: Furosemide (Furosemide 40 Mg Tablet) 40 mg PO DAILY PRN PRN PRN Reason: SHORTNESS OF BREATH Gabapentin (Gabapentin 300 Mg Capsule) 300 mg PO TIDCM [facility] Last Admin: 04/17/20 09:50 Dose: Not Given Documented by: Hydromorphone HCl (Hydromorphone 0.5 Mg/0.5 Ml Syringe) 0.5 mg IV Q4H PRN PRN PRN Reason: Pain Score 6-10 Last Admin: 04/17/20 10:27 Dose: 0.5 mg Documented by: Potassium Chloride () 10 meq in 100 mls @ 100 mls/hr IV BOLUS Q1H [facility] Stop: 04/17/20 11:59 Last Admin: 04/17/20 11:36 Dose: 10 mls/hr Documented by: Lidocaine (Lidocaine 5% Patch) 2 patch TOPICAL DAILY [facility]; Protocol Last Admin: 04/16/20 11:03 Dose: 2 patch Documented by: Lidocaine (Lidocaine 5% Patch) 1 patch TOPICAL DAILY [facility]; Protocol Loratadine (Loratadine 10 Mg Tablet) 10 mg PO DAILY [facility] Last Admin: 04/17/20 11:10 Dose: Not Given Documented by: Nutritional Formula (Lactose Free) (Ensure Enlive 120 Ml Liquid) 120 ml PO 4X/DAY [facility] Last Admin: 04/17/20 11:11 Dose: Not Given Documented by: Ondansetron HCl (Ondansetron 4 Mg/2 Ml Vial) 4 mg IV Q8H PRN PRN PRN Reason: NAUSEA/VOMITING Oxycodone HCl (Oxycodone 5 Mg Tablet) 5 mg PO Q4H PRN PRN PRN Reason: Pain Score 4-5 Last Admin: 04/16/20 20:10 Dose: 5 mg Documented by: Prednisone (Prednisone 20 Mg Tablet) 40 mg PO DAILY@0800 [facility] Last Admin: 04/17/20 09:50 Dose: Not Given Documented by: Senna/Docusate Sodium (Senna/Docusate Sodium 1 Tablet) 2 tablet PO BID PRN PRN PRN Reason: Constipation Sodium Chloride (0.9% Saline Lock 10 Ml Syringe) 10 - 40 ml IV UD PRN PRN Reason: SALINE FLUSH Last Admin: 04/17/20 10:27 Dose: 10 ml Documented by: Tizanidine HCl (Tizanidine Hcl 2 Mg Tablet) 4 mg PO Q8H PRN PRN PRN Reason: SPASMS Last Admin: 04/16/20 22:18 Dose: 4 mg Documented by: Discharge Activity: Return to Normal Activity Home Medications: Medications to take at Discharge Budesonide/Formoterol 160/4.5 [Symbicort 160/4.5 Mcg Inhaler (SP)] 2 puff INHALATION BID 02/27/16 fluticasone propionate 50 mcg/actuation nasal spray,suspension 1 puff INTRANASAL BID 30 Days #16 05/20/17 ipratropium bromide 0.03 % nasal spray 2 spray INTRANASAL BID 12/05/18 bupropion HCl 100 mg tablet 100 mg PO BID tab 11/09/19 buspirone 10 mg tablet 10 mg PO BID 11/09/19 tizanidine 4 mg tablet 8 mg PO QHS 30 Days #60 tab 11/09/19 carvedilol 12.5 mg tablet 12.5 mg PO BID #180 tab 11/17/19 amlodipine 5 mg tablet 5 mg PO DAILY #90 tab 01/25/20 Albuterol Sulfate [Albuterol Sulfate HFA] 1 - 2 puff INHALATION Q4H PRN PRN 04/15/20 Hydrocodone/Acetaminophen [Hydrocodone-Acetamin 10-325 mg] 1 ea PO TID PRN PRN 04/15/20 Loratadine 10 mg PO DAILY 04/15/20 Metformin HCl 500 mg PO BID 04/15/20 Torsemide 20 mg PO DAILY PRN PRN 04/15/20 predniSONE tablet See Taper PO DAILY #15 tab 04/17/20 Following Prescriptions Were Given to Patient: predniSONE tablet See Taper PO DAILY #15 tab Prescription Printed Primary Care Physician: Gabrielle Galeana DO [Primary Care Provider] - Please follow up with your Primary Care Physician in: Within the next week Please Follow Up With: Dr. Pinto When: Within the next two weeks Medical Necessity - Tobacco Use Smoking Status: Former smoker Tobacco Use: Chew Meaningful Use Info Meaningful Use Diagnoses (Choose all that apply): None applicable <Aga Hicks - Last Filed: 04/17/20 16:16> Discharge Date and Diagnosis - Primary Discharge Diagnosis Acute Problems: Active Problems (Last Reviewed 04/15/20 @ 15:[address] Mercy Matthew DO) Intractable low back pain (Acute) Morbid obesity with BMI of 50.0-59.9, adult (Acute) - Secondary Discharge Diagnosis Chronic Problems: Chronic Problems (Last Reviewed 04/15/20 @ 15:[address] Mercy Matthew DO) Hypokalemia (Chronic) Essential (primary) hypertension (Chronic) Hyperlipidemia (Chronic) Secondary pulmonary arterial hypertension (Chronic) Hospital Course and Treatment pain management- Dr Pinto Summary of Care Provided: Patient seen by Jose Maria Osborn PA-C under my supervision The patient is a 59 year old M with an extensive past medical history as outlined who was admitted through the ED with a complaint of intractable acute on chronic back pain. Had had back surgery in the past and had also been seeing pain management. X-ray of the lumbar spine showed degenerative changes of the spine. Patient cannot have an MRI as he said he can only have an open MRI. He was admitted to be managed for intractable acute on chronic lower back pain. Pain management was consulted. Plan was for patient to have spinal epidural pain shot. However patient was reluctant to have this because he said he did not think the pain showed to do anything for him. He also complained of pain in his right ankle though the right ankle did not appear inflamed no any significant swelling. Sure of the foot showed hallux valgus deformity with first metatarsophalangeal joint arthrosis. Uric acid done was elevated at 8.6. He was given a dose of colchicine which help with the pain. He did remained stable. Hospital was complicated by hypokalemia which was corrected. He was discharged home on 04/17/2020 and is to follow-up with his primary care doctor an d with pain management. He was placed on allopurinol at discharge for elevated uric acid, and was also discharged on a prednisone taper. Patient seen and examined prior to discharge. He still complained of the back pain. Review of systems is otherwise negative. Labs and vitals reviewed. Home meds reviewed and reconciled. O/E: Vital Signs Temp Pulse Resp BP Pulse Ox 98.6 F 98 18 160/89 H 92 04/17/20 12:40 04/17/20 12:40 04/17/20 12:40 04/17/20 12:40 04/17/20 12:40 [] General: Alert, Oriented x3, Cooperative, super morbid obesity HEENT: Atraumatic, PERRLA, EOMI, Normocephalic Neck: Supple, No JVD, Negative Carotid Bruits Lungs: Diminished, Wheezes Cardiovascular: Regular rate, No murmurs Abdomen: Bowel Sounds Present, Soft, Non Tender Extremities: No edema, Capillary Refill Less than 3 Seconds Skin: No rashes, No breakdown Musculoskeletal: has mild tenderness on palpation of right ankle. no visible swelling of ankle. Neurological: Cranial nerves II-XII grossly intact Psych/Mental Status: Normal Affect, Appropriate Plan is fro discharge home today. Rest as per Jose Maria Osborn PA-C's note, which I have reviewed and endorsed. - Physical Exam Vitals/I&O's: Vital Signs Temp Pulse Resp BP Pulse Ox 98.6 F 98 18 160/89 H 92 04/17/20 12:40 04/17/20 12:40 04/17/20 12:40 04/17/20 12:40 04/17/20 12:40 Oxygen Flow Rate (L/min) 2 Oxygen Delivery Method Room Air Weight: 379 lb 9.612 oz Body Mass Index (BMI) 54.4 Intake and Output for Last 24 Hours 04/15/20 04/16/20 04/17/20 23:59 23:59 23:59 Intake Total 800 / 800 1600 / 2200 735.83 / 735.83 Output Total 150 / 1000 1450 / 1450 925 / 925 Balance 650 / -200 150 / 750 -189.17 / -189.17 Microbiology Past 72 Hours 04/15/20 17:00 Urine, Midstream Urine Culture - Final Enterococcus faecalis Laboratory Results 04/16/20 05:10: Uric Acid 8.6 H 04/17/20 06:10: WBC 4.9, RBC 4.06 L, Hgb 12.0 L, Hct 36.2 L, MCV 89.2, MCH 29.6, MCHC 33.1, RDW Std Deviation 44.0 H, RDW Coeff of Jordin 13.5, Plt Count 174, MPV 11.1, Immature Gran % (Auto) 0.400, Neut % (Auto) 67.2, Lymph % (Auto) 21.6, Hitchcock % (Auto) 8.0, Eos % (Auto) 2.4, Baso % (Auto) 0.4, Absolute Neuts (auto) 3.3, Absolute Lymphs (auto) 1.06, Nucleated RBC % 0 04/17/20 06:10: Sodium 139, Potassium 2.8 L, Chloride 100, Carbon Dioxide 35.0 H , Anion Gap 4 L, BUN 11, Creatinine 0.87, Estim Creat Clear Calc 93.23, Est GFR (MDRD) Af Amer 115, Est GFR (MDRD) Non-Af 95, BUN/Creatinine Ratio 12.6, Glucose 115 H, Calcium 8.8 Current Medications Acetaminophen (Acetaminophen 325 Mg Tablet) 650 mg PO Q6H PRN PRN PRN Reason: Pain Score 1-10/Temp > 100.7 F Last Admin: 04/15/20 17:11 Dose: 650 mg Documented by: Hydrocodone Bitart/Acetaminophen (Hydrocodone Bitartrate/Apap 5/325 Tablet) 1 tablet PO Q6H PRN PRN PRN Reason: Pain Score 1-5 Last Admin: 04/16/20 13:33 Dose: 1 tablet Documented by: Al Hydroxide/Mg Hydroxide (Mag Hydrox/Al Hydrox/Simeth 30 Ml Udc) 30 ml PO Q6H PRN PRN PRN Reason: Gastric Burning Albuterol Sulfate (Albuterol 2.5 Mg/3 Ml Vial.Neb.) 2.5 mg INHALATION Q8H PRN PRN Reason: SOB &/OR WHEEZING Amlodipine Besylate (Amlodipine 5 Mg Tablet) 5 mg PO DAILY [facility] Last Admin: 04/17/20 12:50 Dose: 5 mg Documented by: Bupropion HCl (Bupropion 100 Mg Tablet) 100 mg PO BID [facility] Last Admin: 04/17/20 12:50 Dose: 100 mg Documented by: Buspirone HCl (Buspirone 5 Mg Tablet) 10 mg PO BID [facility] Last Admin: 04/17/20 12:49 Dose: 10 mg Documented by: Carvedilol (Carvedilol 12.5 Mg Tablet) 12.5 mg PO BID [facility] Last Admin: 04/17/20 12:49 Dose: 12.5 mg Documented by: Enoxaparin Sodium (Enoxaparin 40 Mg/0.4 Ml Syringe) 40 mg SC BID [facility] Last Admin: 04/17/20 07:55 Dose: Not Given Documented by: Fluticasone Propionate (Fluticasone 0.05% 1 [place] Nasal.Sry) 1 spray NASAL BID [facility] Last Admin: 04/17/20 12:51 Dose: 1 spray Documented by: Furosemide (Furosemide 40 Mg Tablet) 40 mg PO DAILY PRN PRN PRN Reason: SHORTNESS OF BREATH Gabapentin (Gabapentin 300 Mg Capsule) 300 mg PO TIDCM [facility] Last Admin: 04/17/20 12:48 Dose: 300 mg Documented by: Hydromorphone HCl (Hydromorphone 0.5 Mg/0.5 Ml Syringe) 0.5 mg IV Q4H PRN PRN PRN Reason: Pain Score 6-10 Last Admin: 04/17/20 10:27 Dose: 0.5 mg Documented by: Lidocaine (Lidocaine 5% Patch) 2 patch TOPICAL DAILY [facility]; Protocol Last Admin: 04/17/20 12:53 Dose: Not Given Documented by: Lidocaine (Lidocaine 5% Patch) 1 patch TOPICAL DAILY [facility]; Protocol Last Admin: 04/17/20 12:53 Dose: Not Given Documented by: Loratadine (Loratadine 10 Mg Tablet) 10 mg PO DAILY [facility] Last Admin: 04/17/20 12:51 Dose: 10 mg Documented by: Nutritional Formula (Lactose Free) (Ensure Enlive 120 Ml Liquid) 120 ml PO 4X/DAY [facility] Last Admin: 04/17/20 12:51 Dose: 120 ml Documented by: Ondansetron HCl (Ondansetron 4 Mg/2 Ml Vial) 4 mg IV Q8H PRN PRN PRN Reason: NAUSEA/VOMITING Oxycodone HCl (Oxycodone 5 Mg Tablet) 5 mg PO Q4H PRN PRN PRN Reason: Pain Score 4-5 Last Admin: 04/16/20 20:10 Dose: 5 mg Documented by: Prednisone (Prednisone 20 Mg Tablet) 40 mg PO DAILY@0800 [facility] Last Admin: 04/17/20 09:50 Dose: Not Given Documented by: Senna/Docusate Sodium (Senna/Docusate Sodium 1 Tablet) 2 tablet PO BID PRN PRN PRN Reason: Constipation Sodium Chloride (0.9% Saline Lock 10 Ml Syringe) 10 - 40 ml IV UD PRN PRN Reason: SALINE FLUSH Last Admin: 04/17/20 10:27 Dose: 10 ml Documented by: Tizanidine HCl (Tizanidine Hcl 2 Mg Tablet) 4 mg PO Q8H PRN PRN PRN Reason: SPASMS Last Admin: 04/16/20 22:18 Dose: 4 mg Documented by: Disposition: Home Minutes spent on discharge:: 40 Patient Condition:: Stable OBSV E&M: 36866 Observation care discharge
[2020-04-17 12:40] VITALS: BP 160/89; PULSE 98; RESP 18; TEMP 37; O2SAT 92
[2020-04-17] MEDS: Gabapentin 300 MG Capsule PO ×2 (12:48→18:51)
[2020-04-17] MEDS: busPIRone 5 MG Tablet 10 MG PO ×2 (12:49)
[2020-04-17] MEDS: Carvedilol 12.5 MG Tablet PO ×2 (12:49)
[2020-04-17] MEDS: amLODIPine 5 MG Tablet PO ×2 (12:50)
[2020-04-17] MEDS: buPROPion 100 MG Tablet PO ×2 (12:50)
[2020-04-17] MEDS: Loratadine 10 MG Tablet PO ×2 (12:51)
--- NOTE | 2020-04-17 13:22 | NURSING ---
CALLED DR PARKS'S OFFICE TO SEE IF PT IS BE DC'D HOME & RESCHEDULE INJECTION AN OUTPT, OR IF HE WILL BE RESCHEDULED FOR TOMORROW. MESSAGE LEFT FOR JIMMIE. WILL AWAIT RETURN CALL.
--- NOTE | 2020-04-17 14:52 | PHA.DC.MR ---
Pharmacy Service has performed discharge medication reconciliation for this patient. The patient's discharge medication list was reviewed for discrepancies and discrepancies were resolved. Home Medications Budesonide/Formoterol 160/4.5 [Symbicort 160/4.5 Mcg Inhaler (SP)] 2 puff INHALATION BID 02/27/16 fluticasone propionate 50 mcg/actuation nasal spray,suspension 1 puff INTRANASAL BID 30 Days #16 05/20/17 ipratropium bromide 0.03 % nasal spray 2 spray INTRANASAL BID 12/05/18 bupropion HCl 100 mg tablet 100 mg PO BID tab 11/09/19 buspirone 10 mg tablet 10 mg PO BID 11/09/19 tizanidine 4 mg tablet 8 mg PO QHS 30 Days #60 tab 11/09/19 carvedilol 12.5 mg tablet 12.5 mg PO BID #180 tab 11/17/19 amlodipine 5 mg tablet 5 mg PO DAILY #90 tab 01/25/20 Albuterol Sulfate [Albuterol Sulfate HFA] 1 - 2 puff INHALATION Q4H PRN PRN 04/15/20 Hydrocodone/Acetaminophen [Hydrocodone-Acetamin 10-325 mg] 1 ea PO TID PRN PRN 04/15/20 Loratadine 10 mg PO DAILY 04/15/20 Metformin HCl 500 mg PO BID 04/15/20 Torsemide 20 mg PO DAILY PRN PRN 04/15/20 predniSONE tablet See Taper PO DAILY #15 tab 04/17/20
[2020-04-17 18:28] LABS: Potassium 3.2 mmol/L (3.5-5.1)
[2020-04-17 19:20] VITALS: BP 163/94; PULSE 89; RESP 18; TEMP 37; O2SAT 95
--- NOTE | 2020-04-17 19:55 | NURSING ---
LATE NOTE: Dr. Hicks called at 1954 to inquire about this pt. She stated that she did not have her phone with her and had missed some texts and was asking about the discharge for this pt. Explained to her that Dr. Casanova had taken care of it.
== END 2020-04-17 20:03 | disposition home or self-care (01) ==
LOC: ED 14:38 → MS3 15:14
PROVIDERS: Internal Medicine; Admitting Provider Internal Medicine; Emergency Provider Emergency Medicine; PCP Internal Medicine; Visit Provider Student in an Organized Health Care Education/Training Program
DX: M54.5 Low back pain (principal); E66.01 Morbid (severe) obesity due to excess calories; Z23 Encounter for immunization; Z68.43 Body mass index [BMI] 50.0-59.9, adult; I10 Essential (primary) hypertension; M20.11 Hallux valgus (acquired), right foot; E78.5 Hyperlipidemia, unspecified; I27.21 Secondary pulmonary arterial hypertension; E87.6 Hypokalemia; G89.29 Other chronic pain; J44.9 Chronic obstructive pulmonary disease, unspecified; K21.9 Gastro-esophageal reflux disease without esophagitis; E88.81 Metabolic syndrome and other insulin resistance; M10.9 Gout, unspecified; F31.9 Bipolar disorder, unspecified; M79.7 Fibromyalgia; M06.4 Inflammatory polyarthropathy; F41.9 Anxiety disorder, unspecified; G47.33 Obstructive sleep apnea (adult) (pediatric); F17.220 Nicotine dependence, chewing tobacco, uncomplicated; I27.29 Other secondary pulmonary hypertension; Z79.899 Other long term (current) drug therapy; Z79.51 Long term (current) use of inhaled steroids; Z79.84 Long term (current) use of oral hypoglycemic drugs; Z98.84 Bariatric surgery status
CPT/HCPCS: 36415; 72100; 73630; 80048; 80053; 81002; 83735; 84132; 84550; 85025; 87077; 87086; 87088; 87186; 93005; 94640; 96365; 96366; 96372; 96375; 96376; 97802; 99218; 99251; 99285; J7120; 90686; A4216; G0378; G0463